=== PATIENT | male | born 1960 | race Caucasian/White ===

== ENCOUNTER 2016-03-30 10:41 | Inpatient (IN) | payer BC, OTHER ==
[~2016-03-30] VITALS: Ht 177.8 cm; Wt 189.0 kg
[2016-03-30] VITALS (11 sets, daily range): BP systolic 112–171; BP diastolic 50–96; PULSE 66–85; RESP 18–22; TEMP 98.1–98.5; O2SAT 85–98
[~2016-03-30 10:41] MED LIST: ASPI325T PO; GLIM2TAB PO; LEVO.075 PO; LISI-363 PO; METF-324 PO; TEMA15 PO
[2016-03-30] MEDS ORDERED: NOVO7030P2 SQ (10:56)
[2016-03-30] MEDS ORDERED: LEVO25TA4 PO (10:56)
[2016-03-30] MEDS ORDERED: METF1000 PO (10:56)
[2016-03-30] MEDS ORDERED: ASPI81CH37 CHEW (10:56)
[2016-03-30] MEDS ORDERED: LISI-515 PO (10:56)
[2016-03-30] MEDS ORDERED: SODIUM CHLORIDE 0.9% FLUSH 5 ML FLUSH IVF PRN (11:00)
--- NOTE | 2016-03-30 11:29 | PD ---
HPI Chief Complaint: Chest Pain Time Seen by Provider: 11:11 Travel History International Travel<30 days: No Contact w/Intl Traveler<30days: No Traveled to known affect area: No History of Present Illness HPI Patient is a 55-year-old male with history of hypertension, diabetes, hypothyroidism who presents to emergency room with complaints of chest pain. Patient reports that he woke up this morning and began to have left-sided chest pain which went down his left arm around 7:30 this morning. Patient reports that symptoms like a "pressure to my chest" with shortness of breath and diaphoresis. Patient reports that symptoms lasted for a few seconds and resolved on its own. Patient reports that he has never had chest pain in the past, reports that he has never seen a real estate firm manager. Denies any recent travels. Reports concern as his father had an MS in his early 50s, patient concerned that he may be having an MS. Patient also reports that he has had increased swelling and drainage from both his lower extremities. Patient reports that his legs always look red and big, reports that he attributes it to his diabetes. Denies fever/chills. PFSH Past Medical History Blood Disorders: No Depression: Yes (SITUATIONAL) Cancer: No Diabetes: Yes Patient Takes Glucophage: Yes Diminished Hearing: No Hypertension: Yes Immune Disorder: No Thyroid Disease: Yes Tetanus Vaccination: > 5 Years Influenza Vaccination: No Past Surgical History Other Surgery: Yes (INGROWN TOENAIL REMOVAL) Family History Family Myocardial Infarction: Yes (father with MS in his early 50's) Social History Alcohol Use: Yes (Occ.) Tobacco Use: No Substance Use: No Allergies-Medications (Allergen,Severity, Reaction): Coded Allergies: Penicillin (Verified Allergy, Severe, Allergy is a family HX; patient never had., 03/30/16) Reported Meds & Prescriptions Reported Meds & Active Scripts Active Reported Novolin 70-30 Inj (Insulin Human Isoph/Insulin Regular) 1,000 Unit/10 Ml Vial 50 Units SQ DAILY Aspirin Low Dose (Aspirin) 81 Mg Chew 81 Mg CHEW DAILY Lisinopril 20 Mg Tab 20 Mg PO DAILY Metformin (Metformin HCl) 1,000 Mg Tab 1,000 Mg PO BIDPC With meals Levothyroxine (Levothyroxine Sodium) 25 Mcg Tab 25 Mcg PO DAILY Review of Systems General / Constitutional: No: Fever Eyes: No: Visual changes HENT: No: Headaches Cardiovascular: Positive: Chest Pain or Discomfort, Diaphoresis Respiratory: Positive: Shortness of Breath Gastrointestinal: No: Nausea, Vomiting, Abdominal Pain Genitourinary: No: Dysuria Musculoskeletal: Positive: Edema, No: Pain Skin: No Rash Neurologic: No: Weakness Psychiatric: No: Depression Endocrine: No: Polydipsia Hematologic/Lymphatic: No: Easy Bruising Physical Exam Narrative GENERAL: No acute distress, nontoxic SKIN: Warm and dry. HEAD: Atraumatic. Normocephalic. EYES: Pupils equal and round. No scleral icterus. No injection or drainage. ENT: No nasal bleeding or discharge. Mucous membranes pink and moist. NECK: Trachea midline. No JVD. CARDIOVASCULAR: Regular rate and rhythm. No murmur appreciated. RESPIRATORY: No accessory muscle use. Clear to auscultation. Breath sounds equal bilaterally. GASTROINTESTINAL: Abdomen soft, non-tender, nondistended. Hepatic and splenic margins not palpable. MUSCULOSKELETAL: No obvious deformities. No clubbing. No cyanosis. +3 pedal edema with clear drainage to rle NEUROLOGICAL: Awake and alert. No obvious cranial nerve deficits. Motor grossly within normal limits. Normal speech. PSYCHIATRIC: Appropriate mood and affect; insight and judgment normal. Data Data Last Documented VS Vital Signs Date Time Temp Pulse Resp B/P Pulse Ox O2 Delivery O2 Flow Rate FiO2 03/30/16 13:35 78 22 119/62 95 Nasal Cannula 4 03/30/16 10:55 98.1 Orders B-Type Natriuretic Peptide (03/30/16 10:54) Ckmb (Isoenzyme) Profile (03/30/16 10:54) Complete Blood Count With Diff (03/30/16 10:54) Comprehensive Metabolic Panel (03/30/16 10:54) Prothrombin Time / Inr (Pt) (03/30/16 10:54) Act Partial Throm Time (Ptt) (03/30/16 10:54) Troponin I (03/30/16 10:54) Lipase (03/30/16 10:54) Chest, Single Ap (03/30/16 10:54) Ecg Monitoring (03/30/16 10:54) Iv Access Insert/Monitor (03/30/16 10:54) Oximetry (03/30/16 10:54) Sodium Chloride 0.9% Flush (Ns Flush) (03/30/16 11:00) Us Leg Venous Doppler Bilat (03/30/16 ) Ct Pulmonary Angiogram (03/30/16 12:13) Aspirin Chew (Aspirin Chew) (03/30/16 12:15) Electrocardiogram (03/30/16 ) Iohexol 350 Inj (Omnipaque 350 Inj) (03/30/16 13:11) Heparin Infusion ADONIS.Q1H (03/30/16 13:26) Heparin-D5w Inj (Heparin-D5w Inj) (03/30/16 13:30) Atorvastatin (Lipitor) (03/30/16 13:45) Act Partial Throm Time (Ptt) (03/30/16 19:45) Consult Cardiology (03/30/16 ) Admit Order (Ed Use Only) (03/30/16 14:00) Labs Laboratory Tests Test 03/30/16 11:30 White Blood Count 9.6 TH/MM3 Red Blood Count 5.58 MIL/MM3 Hemoglobin 14.7 GM/DL Hematocrit 47.6 % Mean Corpuscular Volume 85.2 FL Mean Corpuscular Hemoglobin 26.4 PG Mean Corpuscular Hemoglobin 31.0 % Concent Red Cell Distribution Width 15.5 % Platelet Count 250 TH/MM3 Mean Platelet Volume 7.6 FL Neutrophils (%) (Auto) 78.0 % Lymphocytes (%) (Auto) 12.4 % Monocytes (%) (Auto) 6.6 % Eosinophils (%) (Auto) 1.0 % Basophils (%) (Auto) 2.0 % Neutrophils # (Auto) 7.5 TH/MM3 Lymphocytes # (Auto) 1.2 TH/MM3 Monocytes # (Auto) 0.6 TH/MM3 Eosinophils # (Auto) 0.1 TH/MM3 Basophils # (Auto) 0.2 TH/MM3 CBC Comment DIFF FINAL Differential Comment Prothrombin Time 12.5 SEC Prothromb Time International 1.1 RATIO Ratio Activated Partial 24.7 SEC Thromboplast Time Sodium Level 139 MEQ/L Potassium Level 4.1 MEQ/L Chloride Level 92 MEQ/L Carbon Dioxide Level 41.3 MEQ/L Anion Gap 6 MEQ/L Blood Urea Nitrogen 10 MG/DL Creatinine 1.20 MG/DL Estimat Glomerular Filtration 63 ML/MIN Rate Random Glucose 104 MG/DL Calcium Level 8.2 MG/DL Total Bilirubin 0.7 MG/DL Aspartate Amino Transf 20 U/L (AST/SGOT) Alanine Aminotransferase 26 U/L (ALT/SGPT) Alkaline Phosphatase 53 U/L Total Creatine Kinase 70 U/L Troponin I 0.26 NG/ML B-Type Natriuretic Peptide 185 PG/ML Total Protein 7.1 GM/DL Albumin 3.2 GM/DL Lipase 221 U/L MDM Medical Decision Making Medical Screen Exam Complete: Yes Emergency Medical Condition: Yes Interpretation(s) EKG at 1047: NSR at 88bpm, qt/qtc: 360/409, no acute st or t wave changes Vital Signs Date Time Temp Pulse Resp B/P Pulse Ox O2 Delivery O2 Flow Rate FiO2 03/30/16 10:55 94 22 94 Nasal Cannula 4 repeat ekg at 1316 NSR at 77, qt/qtc: 390/419, no st or t wave changes, no change when compared to previous ekg Vital Signs Date Time Temp Pulse Resp B/P Pulse Ox O2 Delivery O2 Flow Rate FiO2 03/30/16 11:35 80 20 118/59 97 Nasal Cannula 2 03/30/16 11:35 97 Nasal Cannula 2 03/30/16 10:55 94 22 94 Nasal Cannula 4 Laboratory Tests Test 03/30/16 11:30 White Blood Count 9.6 TH/MM3 (4.0-11.0) Red Blood Count 5.58 MIL/MM3 (4.50-5.90) Hemoglobin 14.7 GM/DL (13.0-17.0) Hematocrit 47.6 % (39.0-51.0) Mean Corpuscular Volume 85.2 FL (80.0-100.0) Mean Corpuscular Hemoglobin 26.4 PG (27.0-34.0) Mean Corpuscular Hemoglobin 31.0 % Concent (32.0-36.0) Red Cell Distribution Width 15.5 % (11.6-17.2) Platelet Count 250 TH/MM3 (150-450) Mean Platelet Volume 7.6 FL (7.0-11.0) Neutrophils (%) (Auto) 78.0 % (16.0-70.0) Lymphocytes (%) (Auto) 12.4 % (9.0-44.0) Monocytes (%) (Auto) 6.6 % (0.0-8.0) Eosinophils (%) (Auto) 1.0 % (0.0-4.0) Basophils (%) (Auto) 2.0 % (0.0-2.0) Neutrophils # (Auto) 7.5 TH/MM3 (1.8-7.7) Lymphocytes # (Auto) 1.2 TH/MM3 (1.0-4.8) Monocytes # (Auto) 0.6 TH/MM3 (0-0.9) Eosinophils # (Auto) 0.1 TH/MM3 (0-0.4) Basophils # (Auto) 0.2 TH/MM3 (0-0.2) CBC Comment DIFF FINAL Differential Comment Prothrombin Time 12.5 SEC (9.8-11.6) Prothromb Time International 1.1 RATIO Ratio Activated Partial 24.7 SEC Thromboplast Time (24.3-30.1) Sodium Level 139 MEQ/L (136-145) Potassium Level 4.1 MEQ/L (3.5-5.1) Chloride Level 92 MEQ/L (98-107) Carbon Dioxide Level 41.3 MEQ/L (21.0-32.0) Anion Gap 6 MEQ/L (5-15) Blood Urea Nitrogen 10 MG/DL (7-18) Creatinine 1.20 MG/DL (0.60-1.30) Estimat Glomerular Filtration 63 ML/MIN (>89) Rate Random Glucose 104 MG/DL (74-106) Calcium Level 8.2 MG/DL (8.5-10.1) Total Bilirubin 0.7 MG/DL (0.2-1.0) Aspartate Amino Transf 20 U/L (15-37) (AST/SGOT) Alanine Aminotransferase 26 U/L (12-78) (ALT/SGPT) Alkaline Phosphatase 53 U/L (45-117) Total Creatine Kinase 70 U/L (39-308) Troponin I 0.26 NG/ML (0.02-0.05) B-Type Natriuretic Peptide 185 PG/ML (0-100) Total Protein 7.1 GM/DL (6.4-8.2) Albumin 3.2 GM/DL (3.4-5.0) Lipase 221 U/L (73-393) Last Impressions Chest X-Ray 03/30/16 1054 Signed Impressions: Service Date/Time: Wednesday, March 30, 2016 11:02 - CONCLUSION: Cardiomegaly with no acute cardiopulmonary disease. Michel Daigle MD Lower Extremity Ultrasound 03/30/16 0000 Signed Impressions: Service Date/Time: Wednesday, March 30, 2016 12:20 - CONCLUSION: Negative exam with no evidence of deep venous thrombosis. Michel Daigle MD Differential Diagnosis ACS, arrhythmia, PE, DVT, pneumothorax Narrative Course Patient is a 55-year-old male who presents to emergency room with complaints of chest pain which began this morning on 7:30 AM. Chest pain is located to the left side of his chest and radiates to his left arm and feels like a "pressure" to his chest with associated shortness of breath and diaphoresis. Symptoms only lasted for a few seconds and resolves on its own. Patient reports that he did take a baby ASA this morning. Will give another dose of aspirin Patient currently with no chest pain at this time. EKG with no acute changes. X-ray of chest as well as lab work and cardiac enzymes ordered for further evaluation of symptoms. I did ordered ultrasounds of patient's legs, he does have 3+ pedal edema and is hypoxic as his pulse ox is 94% on 4LNC and he does not use oxygen at home. PE/DVT is in the differential for workup. Plan to monitor patient on deputy controller Patient currently with no chest pain at this time. Patient does have a positive troponin of 0.26. Ultrasound of legs negative for DVT, CAT scan of chest negative for PE. Patient with an NSTEMI at this time. Case reviewed with Dr. Multani, request heparin gtt, and lipitor. Request that patient be transferred to [facility] for possible cath. Critical Care Narrative Aggregate critical care time was 30 minutes. Time to perform other separately billable procedures was not included in the critical care time. My time did not include minutes spent treating any other patients simultaneously or on activities that did not directly contribute to the patient's treatment. The services I provided to this patient were to treat and/or prevent clinically significant deterioration that could result in: , decompensation, deterioration I provided critical care services requiring my management, as noted below: Chart data review, documentation time, medication orders and management, vital sign assessments/reviewing monitor data, ordering and reviewing lab tests, ordering and interpreting/reviewing x-rays and diagnostic studies, care of the patient and discussion of the patient with the admitting physicians. Physician Communication Physician Communication case discussed with dr mlutani and dr flaquito huddleston accepts pt to service Diagnosis Primary Impression: NSTEMI (non-ST elevated myocardial infarction) Admitting Information Admitting Physician Requests: Admit Heather Ferreira DO Mar 30, 2016 11:29
--- NOTE | 2016-03-30 11:30 | RADHPO ---
EXAM DATE/TIME: 03/30/2016 11:02 [facility] COMPARISON: CHEST SINGLE AP, December 19, 2008, 10:34. INDICATIONS : Chest pain. MEDICAL HISTORY : Hypertension. Diabetic. SURGICAL HISTORY : None. ENCOUNTER: Initial ACUITY: 1 day PAIN SCORE: 7/10 LOCATION: chest FINDINGS: 2 AP erect portable views of the chest were obtained. Study is apical lordotic in technique. The hear t size remains enlarged with no definite infiltrates or effusions. There is overlying artifact from t he patient's body habitus. There are overlying electrocardiogram leads. CONCLUSION: Cardiomegaly with no acute cardiopulmonary disease. Michel Daigle MD on March 30, 2016 at 11:25 Board Certified Radiologist. This report was verified electronically.
[2016-03-30 11:40] LABS: AUTOMATED NEUTROPHIL # 7.5 TH/MM3 (1.8-7.7); BASOPHIL # 0.2 TH/MM3 (0-0.2); EOSINOPHIL # 0.1 TH/MM3 (0-0.4); HEMATOCRIT 47.6 % (39.0-51.0); LYMPH % 12.4 % (9.0-44.0); LYMPHOCYTE # 1.2 TH/MM3 (1.0-4.8); MEAN CELL VOLUME 85.2 FL (80.0-100.0); MEAN CORPUSCULAR HEMOGLOBIN 26.4 PG (27.0-34.0); MONO % 6.6 % (0.0-8.0); PLATELET COUNT 250 TH/MM3 (150-450); RED BLOOD COUNT 5.58 MIL/MM3 (4.50-5.90); RED CELL DISTRIBUTION WIDTH 15.5 % (11.6-17.2); WHITE BLOOD COUNT 9.6 TH/MM3 (4.0-11.0)
[2016-03-30 11:50] LABS: HEMO FLAGS DIFF FINAL
[2016-03-30 11:52] LABS: CHLORIDE 92 MEQ/L (98-107); POTASSIUM 4.1 MEQ/L (3.5-5.1); SODIUM (NA) 139 MEQ/L (136-145)
[2016-03-30 11:56] LABS: ANION GAP 6 MEQ/L (5-15); APTT (PATIENT) 24.7 SEC (24.3-30.1); BICARBONATE 41.3 MEQ/L (21.0-32.0); BLOOD UREA NITROGEN 10 MG/DL (7-18); INTERNATIONAL NORMALIZED RATIO 1.1 RATIO; PROTHROMBIN TIME - PATIENT 12.5 SEC (9.8-11.6)
[2016-03-30 11:58] LABS: ALT (GPT) 26 U/L (12-78)
[2016-03-30 11:59] LABS: AST (GOT) 20 U/L (15-37); GLOMERULAR FILTRATION RATE 63 ML/MIN (>89)
[2016-03-30 12:00] LABS: TOTAL BILIRUBIN ADULT 0.7 MG/DL (0.2-1.0)
[2016-03-30 12:01] LABS: ALKALINE PHOSPHATASE 53 U/L (45-117)
[2016-03-30 12:04] LABS: CREATINE KINASE 70 U/L (39-308)
[2016-03-30] MEDS ORDERED: ASPIRIN 81 MG CHEW TAB PO ONE (12:15)
--- NOTE | 2016-03-30 13:03 | RADHPO ---
EXAM DATE/TIME: 03/30/2016 12:20 [facility] COMPARISON: No previous studies available for comparison. INDICATIONS : Bilateral leg swelling. MEDICAL HISTORY : Hypertension. Thyroid disease. Diabetes. SURGICAL HISTORY : Toe nail removal. ENCOUNTER: Initial ACUITY: 1 day PAIN SCORE: 4/10 LOCATION: Bilateral legs. TECHNIQUE: Venous ultrasound of the left and right leg was performed from the inguinal ligament to the proximal calf. Real-time, color Doppler and spectral tracing, compression and augmentation techniques were us ed. FINDINGS: RIGHT LEG: There is normal compressibility of the deep venous system from the inguinal region to the proximal ca lf. No echogenic clot is seen in the lumen of the common femoral, femoral, popliteal, and posterior tibial veins. There is a normal response of the venous system to proximal and distal augmentation an d respiration. LEFT LEG: There is normal compressibility of the deep venous system from the inguinal region to the proximal ca lf. No echogenic clot is seen in the lumen of the common femoral, femoral, popliteal, and posterior tibial veins. There is a normal response of the venous system to proximal and distal augmentation an d respiration. CONCLUSION: Negative exam with no evidence of deep venous thrombosis. Michel Daigle MD on March 30, 2016 at 13:01 Board Certified Radiologist. This report was verified electronically.
[2016-03-30] MEDS ORDERED: IOHEXOL 350 MG/ML 10 ML VIAL (for RAD DIAG) IV ONE (13:11)
--- NOTE | 2016-03-30 13:24 | RADHPO ---
EXAM DATE/TIME: 03/30/2016 12:57 [facility] COMPARISON: No previous studies available for comparison. INDICATIONS : Left sided chest pain radiating to left arm this morning. IV CONTRAST: 75 cc Omnipaque 350 (iohexol) IV RADIATION DOSE: 21.97 CTDIvol (mGy) MEDICAL HISTORY : Hypertension. Diabetes. SURGICAL HISTORY : None. ENCOUNTER: Initial ACUITY: 1 day PAIN SCALE: 4/10 LOCATION: Left chest TECHNIQUE: Volumetric scanning of the chest was performed using a pulmonary embolism protocol MIP images were re constructed. Using automated exposure control and adjustment of the mA and/or kV according to patien t size, radiation dose was kept as low as reasonably achievable to obtain optimal diagnostic quality images. FINDINGS: The study is degraded by the patient's large body habitus. PULMONARY ARTERIES: No filling defects are seen in the pulmonary arteries through the segmental level. LUNGS: There is no consolidation or pneumothorax . No concerning pulmonary nodule is visualized. PLEURAE: There is no pleural thickening or pleural effusion. MEDIASTINUM: There is good visualization of the great vessels of the middle mediastinum. No evidence of mediastin al or hilar adenopathy/mass. Bilateral cardiac fat pads are present. MUSCULOSKELETAL: Within normal limits for patient age. MISCELLANEOUS: The visualized upper abdominal organs demonstrate no acute abnormality. There is fatty infiltration o f the liver. CONCLUSION: 1. The study is degraded by the patient's large body habitus. 2. There is no evidence of pulmonary embolism. Michel Daigle MD on March 30, 2016 at 13:20 Board Certified Radiologist. This report was verified electronically.
[2016-03-30] MEDS ORDERED: ATORVASTATIN 80 MG TAB PO ONE (13:30)
[2016-03-30] MEDS ORDERED: HEPARIN-D5W INJ 250 ML IV SCH (13:30)
[2016-03-30] MEDS ORDERED: ATORVASTATIN 40 MG TAB PO ONE (13:45)
[2016-03-30] MEDS ORDERED: MORPHINE SULFATE 4 MG/ML INJ IV PRN (14:15)
[2016-03-30] MEDS ORDERED: MAGNESIUM HYDROXIDE SUSP 30 ML CUP PO PRN (14:15)
[2016-03-30] MEDS ORDERED: ACETAMINOPHEN 325 MG TAB PO PRN (14:15)
[2016-03-30] MEDS ORDERED: PILL SPLITTER OTHER PRN (14:15)
[2016-03-30] MEDS ORDERED: DEXTROSE 50% IN WATER 50 ML VIAL(D50) IV PUSH PRN (14:15)
[2016-03-30] MEDS ORDERED: GLUCAGON 1 MG/ML VIAL OTHER PRN (14:15)
[2016-03-30] MEDS ORDERED: NALOXONE HCL 0.4 MG/ML AMP IV PRN (14:15)
[2016-03-30] MEDS ORDERED: ONDANSETRON HCL 4 MG/2 ML VIAL IVP PRN (14:15)
[2016-03-30 15:03] LABS: BLOOD GAS CARBOXYHEMOGLOBIN 2.7 % (0-4); BLOOD GAS HCO3 40 mmol/L (22-26); BLOOD GAS METHEMOGLOBIN 0.9 % (0-2); BLOOD GAS O2 HGB SATURATION 93 % (90-100); BLOOD GAS OXYGEN CONTENT 20.1 Vol % (12.0-20.0); BLOOD GAS PCO2 66 mmHG (38-42); BLOOD GAS PO2 86 mmHG (61-120); BLOOD GAS TOTAL HGB 15.4 G/DL (12.0-16.0); TEMP CORR TO 98.6
[2016-03-30 15:04] LABS: CRITICAL VALUE YES
[2016-03-30 15:05] LABS: DRAW SITE LT RADIAL; LITER FLOW 4 L/M; NUMBER OF ARTERIAL PUNCTURES 1; OXYGEN DEVICE NASAL CANNULA; STAT NO; ULNAR PULSE PRESENT
[2016-03-30] MEDS: INSULIN ASPART SUPPLEMENTAL SCALE SQ SCH ×2 (16:00→21:00)
[2016-03-30] MEDS: RESP: ALBUTEROL 2.5 MG/IPRATROPIUM 0.5 MG NEB (SCH) NEB (19:57)
[2016-03-30 20:12] LABS: APTT (PATIENT) 48.5 SEC (24.3-30.1)
[2016-03-30] MEDS: SODIUM CHLORIDE 0.9% FLUSH 5 ML FLUSH IVF SCH (21:00)
[2016-03-30] MEDS: METOPROLOL TARTRATE 25 MG TAB PO SCH (21:30)
[2016-03-30] MEDS: DOCUSATE SODIUM 100 MG CAP PO SCH (21:30)
[2016-03-31] VITALS (22 sets, daily range): BP systolic 116–163; BP diastolic 64–97; PULSE 62–97; RESP 16–20; TEMP 97.8–99; O2SAT 92–98
[2016-03-31 00:33] LABS: CREATINE KINASE 100 U/L (39-308)
[2016-03-31 03:08] LABS: APTT (PATIENT) 20.8 SEC (24.3-30.1)
[2016-03-31 03:14] LABS: ANION GAP 3 MEQ/L (5-15); BICARBONATE 37.6 MEQ/L (21.0-32.0); BLOOD UREA NITROGEN 10 MG/DL (7-18); CHLORIDE 93 MEQ/L (98-107); CREATINE KINASE 136 U/L (39-308); GLOMERULAR FILTRATION RATE 77 ML/MIN (>89); HDL CHOLESTEROL 42.6 MG/DL (40.0-60.0); LDL CHOLESTEROL 39 MG/DL (0-99); POTASSIUM 4.1 MEQ/L (3.5-5.1); SODIUM (NA) 134 MEQ/L (136-145)
[2016-03-31 03:27] LABS: CKMB 2.8 NG/ML (0.5-3.6)
[2016-03-31] MEDS ORDERED: LEVOTHYROXINE SODIUM 25 MCG TAB PO SCH (06:00)
[2016-03-31] MEDS: INSULIN ASPART SUPPLEMENTAL SCALE SQ SCH ×4 (06:11→20:47)
[2016-03-31] MEDS: RESP: ALBUTEROL 2.5 MG/IPRATROPIUM 0.5 MG NEB (SCH) NEB ×3 (07:14→20:20)
[2016-03-31] MEDS: METOPROLOL TARTRATE 25 MG TAB PO SCH ×2 (08:26→20:47)
[2016-03-31] MEDS: LISINOPRIL 20 MG TAB PO SCH (08:26)
[2016-03-31] MEDS: ASPIRIN EC 325 MG TABEC PO SCH (08:27)
[2016-03-31] MEDS: SODIUM CHLORIDE 0.9% FLUSH 5 ML FLUSH IVF SCH ×2 (08:27→20:47)
--- NOTE | 2016-03-31 08:48 | EKG ---
Date Performed: 03/30/2016 Time Performed: 16:09:24 PTAGE: 55 years EKG: Sinus arrhythmia. IV conduction defect Possible anterior infarct - age undetermined General ized low QRS voltages Abnormal ECG PREVIOUS TRACING : 03/30/2016 13.16 DOCTOR: Petey Tavares Interpretating Date/Time 03/31/2016 08:43:13
--- NOTE | 2016-03-31 08:54 | EKG ---
Date Performed: 03/30/2016 Time Performed: 13:16:58 PTAGE: 55 years EKG: Sinus rhythm . Poor R wave progression - probable normal variant Low QRS voltages in limb leads Borderline ECG PREVIOUS TRACING : 03/30/2016 10.47 DOCTOR: Petey Tavares Interpretating Date/Time 03/31/2016 08:50:23
[2016-03-31] MEDS ORDERED: INFLUENZA VIRUS VACCINE (QUADRIVALENT) 0.5 ML SYR IM ONE (09:00)
[2016-03-31] MEDS ORDERED: PNEUMOCOCCAL POLYVALENT INJ 25 MCG/0.5 ML SYR IM ONE (09:00)
[2016-03-31 10:39] LABS: APTT (PATIENT) 25.5 SEC (24.3-30.1)
[2016-03-31] MEDS: DOCUSATE SODIUM 100 MG CAP PO SCH ×2 (10:50→20:47)
--- NOTE | 2016-03-31 11:29 | EKG ---
Date Performed: 03/30/2016 Time Performed: 10:47:52 PTAGE: 55 years EKG: Sinus rhythm . Poor R wave progression - probable normal variant Low QRS voltages in limb leads Borderline ECG PREVIOUS TRACING : 12/19/2008 10.51 DOCTOR: Petey Tavares Interpretating Date/Time 03/31/2016 11:27:55
--- NOTE | 2016-03-31 11:57 | MB ---
cc: KAELA SEVERINO DATE OF 1960 DATE OF CONSULTATION March 31, 2016 REASON FOR CONSULTATION Chest pain and elevated troponins. HISTORY OF PRESENT ILLNESS 55-year-old male with past medical history significant for hypertension, diabetes, hypothyroidism, morbid obesity who presented to the hospital complaining of chest pain and shortness of breath since yesterday around 7 in the morning. The patient reported he was in his usual state of health until yesterday when all of a sudden he woke up with left-sided chest pressure that radiated to his left arm and was associated with a shortness of breath and diaphoresis. The chest pain went away by itself and lasted only a few seconds. EKG showed normal sinus rhythm with no significant ST changes. CTA done showed no evidence of PE. Cardiac markers went up to 2.59. Thus Cardiology has been consulted for further management and evaluation. The patient denies palpitations , syncope, chest trauma, bleeding issues, nausea, vomiting, constipation and diarrhea. REVIEW OF SYSTEMS As above dictated in the HPI. PAST MEDICAL HISTORY 1. Morbid obesity. 2. Hypertension. 3. Diabetes. 4. Hypothyroidism. 5. Depression. PAST SURGICAL HISTORY Ingrown toenail removal. FAMILY HISTORY Father had MA at age 50. SOCIAL HISTORY Social alcohol use. Denies tobacco or illicit drug use. ALLERGIES PENICILLIN. HOME MEDICATIONS 1. Insulin subcu. 2. Aspirin 81 mg p.o. daily. 3. Lisinopril 20 mg p.o. daily. 4. Metformin 1000 mg p.o. b.i.d. 5. Levothyroxine 25 mcg p.o. daily. PHYSICAL EXAMINATION VITAL SIGNS: Temperature 98.2, respiratory rate 18, pulse 72, blood pressure 120/71, O2 sat 96% on 2 liters NC. GENERAL: He is awake, alert, oriented x 3, in no acute distress. NECK: Obese. No JVD. HEART: Regular rate and rhythm. No murmurs, rubs, or gallops appreciated. LUNGS: Clear to auscultation bilaterally. ABDOMEN: Obese. Positive bowel sounds, nontender, nondistended. EXTREMITIES: There is +1 edema of bilateral lower extremities and there is some redness, no signs of infection. DATA CBC - Hemoglobin 14, hematocrit 47, platelet count 250. INR 1.1. Chemistries - Sodium 134, potassium 4.1, BUN 10, creatinine 1.01. Troponin 0.26, 0.54, 0.57 and 0.59. Triglycerides 108, cholesterol 103, LDL 39, HDL 42. TSH 9.2. IMAGING STUDIES CTA negative for PE. CHEST X-RAY No acute cardiopulmonary process. Lower extremity ultrasound - No DVT. EKG Sinus rhythm. ASSESSMENT AND PLAN 55-year-old male with cardiac risk factors that include obesity, diabetes, hypertension, who presented to the hospital complaining of acute episode of angina, troponins trending up with no EKG changes. Currently he remains hemodynamically stable and chest pain-free. At this point, given his risk factors and elevated troponins, I think it would reasonable to do a left heart catheterization to further risk stratify his CAD. The risks and benefits of left heart cath/intervention include but not limited to bleeding, kidney failure , neurovascular trauma, MA, emergent CABG, stroke and have been explained to the patient. The patient understands and he is willing to proceed. Recommendations: 1. Left heart cath/PCI this afternoon. 2. Continue aggressive medical management for ACS with aspirin, statins, beta blockers and anticoagulation. Thank you for the opportunity to take part in the care of this patient. Further therapy to be determined. MD VENKATA Antonio/SSB /11:19 AM /11:34 AM [facility]
[2016-03-31 12:53] LABS: HEMOGLOBIN A1a 1.3 %; HEMOGLOBIN A1b 1.9 %; HEMOGLOBIN LA1C 1.6 %; HEMOGLOBIN P3 3.2 %
--- NOTE | 2016-03-31 14:49 | HHI.HP ---
[facility] Service [place] [facility] Primary Care Physician Wesley Gamez M.D. Admission Diagnosis NSTEMI Diagnoses: Chief Complaint: Chest pain Travel History International Travel<30 Days: No Contact w/Intl Traveler <30 Da: No Traveled to Known Affected Are: No History of Present Illness Late entry: This is a 55-year-old male with history of hypertension, diabetes mellitus and morbid obesity presenting with chest pain. Chest pain started around 7 AM this morning upon waking up, left-sided, described as pressure-like, radiating to left arm associated with shortness of breath and diaphoresis. Chest pain lasted for about a few seconds. Patient was then brought to the emergency department. CTA of the chest was negative for PE. Troponin was. Patient denies any nausea, vomiting, urinary status, fever, chills or cough. Presently , patient is chest pain-free. Review of Systems ROS Limitations: Other (All other pertinent systems were reviewed and are negative.) Past Family Social History Past Medical History Morbid obesity Hypothyroidism Hypertension Diabetes mellitus Depression Past Surgical History Ingrown toenail removal Reported Medications Novolin 70-30 Inj (Insulin Human Isoph/Insulin Regular) 1,000 Unit/10 Ml Vial 50 Units SQ DAILY Aspirin Low Dose (Aspirin) 81 Mg Chew 81 Mg CHEW DAILY Lisinopril 20 Mg Tab 20 Mg PO DAILY Metformin (Metformin HCl) 1,000 Mg Tab 1,000 Mg PO BIDPC With meals Levothyroxine (Levothyroxine Sodium) 25 Mcg Tab 25 Mcg PO DAILY Allergies: Coded Allergies: Penicillin (Verified Allergy, Severe, Allergy is a family HX; patient never had., 03/30/16) Family History Father of [place] at age 50 Social History Patient denies smoking, significant alcohol intake or use of any illicit drugs. Drinks socially Physical Exam Vital Signs Vital Signs Date Time Temp Pulse Resp B/P Pulse Ox O2 Delivery O2 Flow Rate FiO2 03/31/16 14:03 69 03/31/16 13:36 97 03/31/16 12:25 68 03/31/16 11:52 69 03/31/16 11:38 98.4 69 20 145/68 93 03/31/16 10:00 72 03/31/16 09:00 64 03/31/16 08:06 72 03/31/16 08:06 98.2 66 18 120/71 95 03/31/16 07:31 72 03/31/16 07:14 96 Nasal Cannula 2.00 03/31/16 06:00 72 03/31/16 05:00 86 03/31/16 04:00 98.1 74 16 116/64 92 03/31/16 04:00 74 03/31/16 03:00 72 03/31/16 02:00 74 03/31/16 01:00 80 03/31/16 00:00 98.4 72 16 138/82 93 03/31/16 00:00 74 03/30/16 23:00 66 03/30/16 22:00 68 03/30/16 21:00 78 03/30/16 21:00 98.5 78 20 159/96 94 03/30/16 19:58 96 Nasal Cannula 4.00 03/30/16 19:52 74 18 115/50 98 Nasal Cannula 2 03/30/16 15:35 66 20 112/63 96 Nasal Cannula 4 Physical Exam GENERAL: Not in acute distress, well-nourished. HEAD: Atraumatic. Normocephalic. No temporal or scalp tenderness. EYES: PERRL, full EOMs, no jaundice, nonicteric, pink conjunctivae without injection, moist mucosa ENT: Nose without bleeding, purulent drainage. Airway patent. NECK: Trachea midline, no mass, no obvious thyromegaly. CARDIOVASCULAR: Regular rate and rhythm without murmurs, gallops, or rubs. RESPIRATORY: Decreased breath sounds bilaterally because of body habitus. GASTROINTESTINAL: Abdomen soft, normal bowel sounds, non-tender, nondistended.DAMARIS and exam deferred. MUSCULOSKELETAL: Extremities without clubbing, cyanosis, or edema. No calf tenderness. Distal pulses intact, 2+ bilaterally. INTEGUMENTARY: Warm and dry, no rash of generalized distribution. NEUROLOGICAL: Awake, alert, oriented 3. No obvious cranial nerve deficits. Moves all 4 extremities, muscle strength testing 5 over 5. Motor and sensory grossly within normal limits. .Supple neck, no meningeal signs. Grossly negative cerebellar examination. No focal neurologic deficits. PSYCHIATRIC: Normal mood, appropriate affect. Laboratory Laboratory Tests Test 03/30/16 03/30/16 03/30/16 03/30/16 14:55 15:55 19:45 22:35 Blood Gas Puncture Site LT RADIAL Blood Gas Patient Temperature 98.6 Blood Gas HCO3 40 Blood Gas Base Excess 14.0 Blood Gas Oxygen Saturation 93 Arterial Blood pH 7.40 Arterial Blood Partial 66 Pressure CO2 Arterial Blood Partial 86 Pressure O2 Arterial Blood Oxygen Content 20.1 Arterial Blood 2.7 Carboxyhemoglobin Arterial Blood Methemoglobin 0.9 Blood Gas Hemoglobin 15.4 Oxygen Delivery Device NASAL CANNULA Blood Gas Liter Flow 4 Total Creatine Kinase 69 100 Troponin I 0.54 0.57 Activated Partial 48.5 Thromboplast Time Hemoglobin A1c 7.6 Thyroid Stimulating Hormone 9.210 3rd Gen Test 03/31/16 03/31/16 02:19 10:06 Activated Partial 20.8 25.5 Thromboplast Time Sodium Level 134 Potassium Level 4.1 Chloride Level 93 Carbon Dioxide Level 37.6 Anion Gap 3 Blood Urea Nitrogen 10 Creatinine 1.01 Estimat Glomerular Filtration 77 Rate Random Glucose 121 Calcium Level 8.6 Total Creatine Kinase 136 Creatine Kinase MB 2.8 Troponin I 0.59 Triglycerides Level 108 Cholesterol Level 103 LDL Cholesterol 39 HDL Cholesterol 42.6 Cholesterol/HDL Ratio 2.41 Result Diagram: 03/30/16 1130 03/31/16 [address] Angiography 03/30/16 1213 Signed Impressions: Service Date/Time: Wednesday, March 30, 2016 12:57 - CONCLUSION: 1. The study is degraded by the patient's large body habitus. 2. There is no evidence of pulmonary embolism. Michel Daigle MD Chest X-Ray 03/30/16 1054 Signed Impressions: Service Date/Time: Wednesday, March 30, 2016 11:02 - CONCLUSION: Cardiomegaly with no acute cardiopulmonary disease. Michel Daigle MD Lower Extremity Ultrasound 03/30/16 0000 Signed Impressions: Service Date/Time: Wednesday, March 30, 2016 12:20 - CONCLUSION: Negative exam with no evidence of deep venous thrombosis. Michel Daigle MD Assessment and Plan Assessment and Plan This is a 55-year-old male with history of hypertension, diabetes and morbidly obese person with chest pain Non-ST elevated myocardial infarction- troponin 0.26, EKG showed sinus rhythm, start heparin, consult cardiology, will likely need a catheterization. Start statin, aspirin and metoprolol. Morphine for pain. Diabetes mellitus-hemoglobin A1c 7.6, needs better control of diabetes, continue sliding scale for now,, start Levemir. Hold metformin Hypothyroidism-TSH 9.2, check free T3 and free T4. Increased levothyroxine, would likely need increase anyway based on his weight. Hypertension-restart lisinopril, Vasotec as needed DVT reflexes: Heparin drip Physician Certification 2 Midnight Certification Type: Admission for Inpatient Services Order for Inpatient Services The services are ordered in accordance with Medicare regulations or non- Medicare payer requirements, as applicable. In the case of services not specified as inpatient-only, they are appropriately provided as inpatient services in accordance with the 2-midnight benchmark. Estimated LOS (days): 2 days is the estimated time the patient will need to remain in the hospital, assuming treatment plan goals are met and no additional complications. Post-Hospital Plan: Home Ian Wilcox MD Mar 31, 2016 14:49
[2016-03-31] MEDS ORDERED: HEPARIN-NS/PF INJ 500 ML ONE (15:58)
[2016-03-31] MEDS ORDERED: MIDAZOLAM HCL 2 MG/2 ML VIAL ONE (15:59)
[2016-03-31] MEDS ORDERED: VERAPAMIL HCL 5 MG/2 ML VIAL ONE (16:06)
[2016-03-31] MEDS ORDERED: HEPARIN SODIUM - IV 10,000 UNITS/10 ML VIAL ONE (16:06)
[2016-03-31] MEDS ORDERED: IOHEXOL 350 MG/ML 50 ML BTL (for Cath Lab) OTHER ONE (16:34)
--- NOTE | 2016-03-31 17:50 | MA ---
cc: KAELA SEVERINO DATE 03/31/16 1960 PROCEDURE PERFORMED 1. Left heart catheterization 2. Selective right and coronary angiography 3. Left ventricular recordings APPROACH Right radial DESCRIPTION OF PROCEDURE Consent signed. The patient is brought into the cardiac cath in a fasting state. Using 1% Lidocaine for local anesthesia a micropuncture kit a 6-Czech sheath was inserted into the right radial artery. Then selective right and left coronary angiography was performed with a JR-4 and JL-3.5 diagnostic catheter. Angiography was taken in multiple views. The JR was introduced into the left ventricle followed by LV recordings and pullback. The patient tolerated the procedure well without complications. Estimated blood loss less than 30 mL. Total contrast used 75 mL. The right radial access site was closed with a TR band. ANGIOGRAPHIC RESULTS LVEDP 20. ANGIOGRAPHY 1. Left main patent with nonobstructive coronary artery disease. 2. LAD is a transapical vessel. It has minimal irregularities. No significant blockages. It has VIET III flow. Diagonal was also patent with nonobstructive CAD. 3. Left circumflex is a widely open with nonobstructive CAD and VIET III flow. OM1 and 2 are patent. 4. Right coronary artery dominant vessel giving off the PDA. It is patent with nonobstructive coronary artery disease. CONCLUSION 1. Normal coronary arteries 2. Elevated LVEDP. RECOMMENDATIONS Continue aggressive medical management for cardiac risk factors. Lifestyle modification and post cath care. MD VENKATA Antonio/ /5:22 PM /5:39 PM CHLOE
[2016-03-31] MEDS ORDERED: ENALAPRILAT 1.25 MG/ML VIAL IV PUSH PRN (18:00)
[2016-03-31 19:21] LABS: FREE T4 1.29 NG/DL (0.76-1.46)
[2016-03-31 19:27] LABS: APTT (PATIENT) 24.8 SEC (24.3-30.1)
[2016-03-31] MEDS: ATORVASTATIN 40 MG TAB PO SCH (20:47)
[2016-03-31] MEDS: INSULIN DETEMIR 100 UNITS/ML VIAL SQ SCH (20:47)
[2016-04-01] VITALS (23 sets, daily range): BP systolic 126–162; BP diastolic 65–93; PULSE 60–93; RESP 18–22; TEMP 97.5–98.8; O2SAT 92–95
[2016-04-01] MEDS: LEVOTHYROXINE SODIUM 125 MCG TAB PO SCH (05:28)
[2016-04-01] MEDS: INSULIN ASPART SUPPLEMENTAL SCALE SQ SCH ×4 (05:30→21:00)
[2016-04-01] MEDS: RESP: ALBUTEROL 2.5 MG/IPRATROPIUM 0.5 MG NEB (SCH) NEB ×3 (07:10→21:55)
[2016-04-01 07:57] LABS: AUTOMATED NEUTROPHIL # 6.8 TH/MM3 (1.8-7.7); BASOPHIL % 0.2 % (0.0-2.0); EOSINOPHIL # 0.2 TH/MM3 (0-0.4); EOSINOPHIL % 1.9 % (0.0-4.0); HEMATOCRIT 47.7 % (39.0-51.0); HEMO FLAGS DIFF FINAL; LYMPH % 9.1 % (9.0-44.0); LYMPHOCYTE # 0.7 TH/MM3 (1.0-4.8); MEAN CORPUSCULAR HEMOGLOBIN 26.8 PG (27.0-34.0); MEAN CORPUSCULAR HGB CONC 30.8 % (32.0-36.0); NEUT % 81.8 % (16.0-70.0); PLATELET COUNT 202 TH/MM3 (150-450); RED BLOOD COUNT 5.48 MIL/MM3 (4.50-5.90); RED CELL DISTRIBUTION WIDTH 16.5 % (11.6-17.2); WHITE BLOOD COUNT 8.3 TH/MM3 (4.0-11.0)
[2016-04-01] MEDS: DOCUSATE SODIUM 100 MG CAP PO SCH ×2 (08:22→21:05)
[2016-04-01] MEDS: LISINOPRIL 20 MG TAB PO SCH (08:22)
[2016-04-01] MEDS: ASPIRIN EC 325 MG TABEC PO SCH (08:22)
[2016-04-01] MEDS: METOPROLOL TARTRATE 25 MG TAB PO SCH ×2 (08:23→21:06)
[2016-04-01] MEDS: SODIUM CHLORIDE 0.9% FLUSH 5 ML FLUSH IVF SCH ×2 (08:23→21:04)
--- NOTE | 2016-04-01 10:52 | HHI.PR ---
Subjective Remarks Follow-up chest pain. Denies further chest pain. States he cannot go home because he is short of breath even with slight exertion. Also states fluids seeping out of his legs. Objective Vitals Vital Signs Date Time Temp Pulse Resp B/P Pulse Ox O2 Delivery O2 Flow Rate FiO2 04/01/16 10:08 64 04/01/16 09:29 64 04/01/16 08:25 90 04/01/16 08:25 97.9 77 20 162/65 95 04/01/16 07:10 92 Nasal Cannula 4.00 04/01/16 04:38 98.8 86 20 152/93 92 04/01/16 03:35 86 04/01/16 01:00 80 04/01/16 00:00 98.8 80 20 144/65 92 04/01/16 00:00 85 03/31/16 20:00 99.0 85 20 163/97 92 03/31/16 20:00 85 03/31/16 18:14 63 03/31/16 17:23 92 03/31/16 17:20 97.8 66 18 121/67 98 03/31/16 15:35 62 03/31/16 14:03 69 03/31/16 13:36 97 03/31/16 12:25 68 03/31/16 11:52 69 03/31/16 11:38 98.4 69 20 145/68 93 I/O 03/31/16 03/31/16 03/31/16 04/01/16 04/01/16 04/01/16 07:00 15:00 23:00 07:00 15:00 23:00 Intake Total 503 ml 480 ml 600 ml Output Total 500 ml 600 ml 750 ml Balance 3 ml -120 ml -150 ml Intake Oral 360 ml 480 ml 600 ml IV Total 143 ml 0 ml Output Urine Total 500 ml 600 ml 750 ml # Bowel Movements 0 0 Result Diagram: 04/01/16 0541 03/31/16 [address] Angiography 03/30/16 1213 Signed Impressions: Service Date/Time: Wednesday, March 30, 2016 12:57 - CONCLUSION: 1. The study is degraded by the patient's large body habitus. 2. There is no evidence of pulmonary embolism. Michel Daigle MD Chest X-Ray 03/30/16 1054 Signed Impressions: Service Date/Time: Wednesday, March 30, 2016 11:02 - CONCLUSION: Cardiomegaly with no acute cardiopulmonary disease. Michel Daigle MD Lower Extremity Ultrasound 03/30/16 0000 Signed Impressions: Service Date/Time: Wednesday, March 30, 2016 12:20 - CONCLUSION: Negative exam with no evidence of deep venous thrombosis. Michel Daigle MD Objective Remarks GENERAL: Well-developed obese in no distress SKIN: Warm and dry. HEAD: Atraumatic. Normocephalic. EYES: Pupils equal and round. No scleral icterus. No injection or drainage. ENT: No nasal bleeding or discharge. Mucous membranes pink and moist. NECK: Trachea midline. No JVD. CARDIOVASCULAR: Regular rate and rhythm. RESPIRATORY: No accessory muscle use. Clear to auscultation. Decreased Breath sounds equal bilaterally. GASTROINTESTINAL: Abdomen soft, non-tender, nondistended. MUSCULOSKELETAL: Extremities without clubbing, cyanosis with bilateral lower extremity pitting edema, he has anasarca. No obvious deformities. NEUROLOGICAL: Awake and alert. No obvious cranial nerve deficits. Motor grossly within normal limits. Five out of 5 muscle strength in the arms and legs. Normal speech. PSYCHIATRIC: Appropriate mood and affect; insight and judgment normal. Procedures Cardiac catheterization A/P Assessment and Plan This is a 55-year-old male with history of hypertension, diabetes and morbidly obese person with chest pain Chest pain with troponin elevation. Negative cardiac catheterization. CTA negative for PE. Continue aspirin, Lopressor and lisinopril. Diabetes mellitus-hemoglobin A1c 7.6, needs better control of diabetes, continue sliding scale and Levemir. Hold metformin repeat BMP and magnesium in the morning Hypothyroidism-TSH 9.2. Increased levothyroxine based on his weight. Hypertension-restart lisinopril, Vasotec as needed Fluid overload etiology to be determined. Renal function within normal limits. Obtain echocardiogram. Fluid restriction. Start IV diuresis with Lasix and monitor renal function and electrolytes. DVT prophylaxis with heparin Discharge Planning Not ready for discharge Raúl Wood MD Apr 01, 2016 10:52 Sodium Level 134 Potassium Level 4.1 Chloride Level 93 Carbon Dioxide Level 37.6 Anion Gap 3 Blood Urea Nitrogen 10 Creatinine 1.01 Estimat Glomerular Filtration 77 Rate Random Glucose 121 Calcium Level 8.6 Total Creatine Kinase 136 Creatine Kinase MB 2.8 Troponin I 0.59 Triglycerides Level 108 Cholesterol Level 103 LDL Cholesterol 39 HDL Cholesterol 42.6 Cholesterol/HDL Ratio 2.41 Result Diagram: 03/30/16 1130 03/31/16 [address] Angiography 03/30/16 1213 Signed Impressions: Service Date/Time: Wednesday, March 30, 2016 12:57 - CONCLUSION: 1. The study is degraded by the patient's large body habitus. 2. There is no evidence of pulmonary embolism. Michel Daigle MD Chest X-Ray 03/30/16 1054 Signed Impressions: Service Date/Time: Wednesday, March 30, 2016 11:02 - CONCLUSION: Cardiomegaly with no acute cardiopulmonary disease. Michel Daigle MD Lower Extremity Ultrasound 03/30/16 0000 Signed Impressions: Service Date/Time: Wednesday, March 30, 2016 12:20 - CONCLUSION: Negative exam with no evidence of deep venous thrombosis. Michel Daigle MD Septic Shock Reassessment Septic Shock Reassessment Assessment and Plan Assessment and Plan Assessment and Plan This is a 55-year-old male with history of hypertension, diabetes and morbidly obese person with chest pain Non-ST elevated myocardial infarction- troponin 0.26, EKG showed sinus rhythm, start heparin, consult cardiology, will likely need a catheterization. Start statin, aspirin and metoprolol. Morphine for pain. Diabetes mellitus-hemoglobin A1c 7.6, needs better control of diabetes, continue sliding scale for now,, start Levemir. Hold metformin Hypothyroidism-TSH 9.2, check free T3 and free T4. Increased levothyroxine, would likely need increase anyway based on his weight. Hypertension-restart lisinopril, Vasotec as needed DVT reflexes: Heparin drip Raúl Wood MD Apr 01, 2016 10:52
[2016-04-01] MEDS ORDERED: CALCIUM CARBONATE 500 MG CHEWABLE TAB CHEW PRN (11:00)
[2016-04-01] MEDS ORDERED: FUROSEMIDE 20 MG/2 ML VIAL IV PUSH ONE (11:00)
[2016-04-01] MEDS ORDERED: ALUMINUM/MAGNESIUM/SIMETH 30 ML CUP PO PRN (11:00)
[2016-04-01] MEDS: POTASSIUM CHLORIDE 10 MEQ CAP PO SCH ×2 (11:43→21:05)
[2016-04-01] MEDS: HEPARIN SODIUM - SQ 10,000 UNITS/ML VIAL SQ SCH ×2 (12:28→21:08)
[2016-04-01 13:35] LABS: BICARBONATE 37.7 MEQ/L (21.0-32.0); POTASSIUM 4.3 MEQ/L (3.5-5.1)
[2016-04-01] MEDS: FUROSEMIDE 20 MG/2 ML VIAL IV PUSH SCH (17:01)
--- NOTE | 2016-04-01 19:03 | EC ---
Study Study Date:04/01/2016 STUDY CONCLUSIONS SUMMARY - Procedure narrative: Image quality was poor. The study was technically limited due to body habitus. - Left ventricle: Not visualized. Unable to determine ejection fraction. If LV function is below 40, please consider prescribing an ACEI or ARB or document rationale for non-use. PROCEDURE DATA Procedure: Transthoracic echocardiography. Image quality was poor. The study was technically limited due to body habitus. Scanning was performed from the parasternal, apical, and subcostal acoustic windows. Study completion: The patient tolerated the procedure well. Transthoracic echocardiography. M-mode, limited 2D, limited spectral Doppler, and color Doppler. CARDIAC ANATOMY LEFT VENTRICLE: Not visualized. Images were inadequate for LV wall motion assessment. Prepared and signed by Clifton Valera [id number]
[2016-04-01] MEDS: FAMOTIDINE 20 MG TAB PO SCH (21:06)
[2016-04-01] MEDS: ATORVASTATIN 40 MG TAB PO SCH (21:06)
[2016-04-01] MEDS: INSULIN DETEMIR 100 UNITS/ML VIAL SQ SCH (21:07)
[2016-04-02] VITALS (30 sets, daily range): BP systolic 131–157; BP diastolic 60–85; PULSE 62–98; RESP 18–22; TEMP 98.2–98.8; O2SAT 92–99
[2016-04-02] MEDS: LEVOTHYROXINE SODIUM 125 MCG TAB PO SCH (05:42)
[2016-04-02] MEDS: INSULIN ASPART SUPPLEMENTAL SCALE SQ SCH ×4 (05:44→21:00)
[2016-04-02] MEDS: RESP: ALBUTEROL 2.5 MG/IPRATROPIUM 0.5 MG NEB (SCH) NEB ×3 (07:59→21:10)
[2016-04-02 08:24] LABS: BICARBONATE 40.9 MEQ/L (21.0-32.0); MAGNESIUM 2.2 MG/DL (1.5-2.5); POTASSIUM 4.8 MEQ/L (3.5-5.1)
[2016-04-02] MEDS: SODIUM CHLORIDE 0.9% FLUSH 5 ML FLUSH IVF SCH ×2 (08:45→19:52)
[2016-04-02] MEDS: LISINOPRIL 20 MG TAB PO SCH (08:46)
[2016-04-02] MEDS: FUROSEMIDE 20 MG/2 ML VIAL IV PUSH SCH (08:46)
[2016-04-02] MEDS: METOPROLOL TARTRATE 25 MG TAB PO SCH ×2 (08:46→19:52)
[2016-04-02] MEDS: HEPARIN SODIUM - SQ 10,000 UNITS/ML VIAL SQ SCH ×2 (08:46→19:52)
[2016-04-02] MEDS: DOCUSATE SODIUM 100 MG CAP PO SCH ×2 (08:47→19:51)
[2016-04-02] MEDS: POTASSIUM CHLORIDE 10 MEQ CAP PO SCH ×2 (08:47→19:51)
[2016-04-02] MEDS: FAMOTIDINE 20 MG TAB PO SCH ×2 (08:47→19:51)
[2016-04-02] MEDS: ASPIRIN EC 325 MG TABEC PO SCH (08:47)
--- NOTE | 2016-04-02 10:30 | HHI.PR ---
Subjective Remarks Follow-up dyspnea. Improving shortness of breath last 2 kg from diuresis yesterday. Discussed with RN Objective Vitals Vital Signs Date Time Temp Pulse Resp B/P Pulse Ox O2 Delivery O2 Flow Rate FiO2 04/02/16 10:02 73 04/02/16 09:17 76 04/02/16 08:41 98.2 76 20 151/60 93 04/02/16 08:01 96 Nasal Cannula 4.00 04/02/16 08:00 78 04/02/16 07:00 98 04/02/16 06:00 78 04/02/16 05:00 78 04/02/16 04:00 80 04/02/16 03:00 98.4 82 20 156/76 93 04/02/16 03:00 82 04/02/16 02:53 71 04/02/16 02:00 80 04/02/16 01:00 90 04/02/16 00:00 76 04/01/16 23:00 97.5 78 22 129/85 94 04/01/16 22:33 72 04/01/16 22:00 68 04/01/16 21:56 94 Nasal Cannula 4.00 04/01/16 21:00 72 04/01/16 20:00 72 04/01/16 19:00 77 04/01/16 19:00 98.2 72 18 129/69 93 04/01/16 18:23 74 04/01/16 17:03 93 04/01/16 16:02 76 04/01/16 15:30 76 04/01/16 15:30 98.0 86 18 146/81 94 04/01/16 14:32 69 04/01/16 13:02 67 04/01/16 12:00 69 04/01/16 11:28 60 04/01/16 11:28 98.2 62 18 126/74 95 I/O 04/01/16 04/01/16 04/01/16 04/02/16 04/02/16 04/02/16 07:00 15:00 23:00 07:00 15:00 23:00 Intake Total 600 ml 720 ml 520 ml Output Total 750 ml 1625 ml 2250 ml Balance -150 ml -905 ml -1730 ml Intake Oral 600 ml 720 ml 520 ml IV Total 0 ml Output Urine Total 750 ml 1625 ml 2250 ml # Bowel Movements 0 0 1 Result Diagram: 04/01/16 0541 04/02/16 [address] Angiography 03/30/16 1213 Signed Impressions: Service Date/Time: Wednesday, March 30, 2016 12:57 - CONCLUSION: 1. The study is degraded by the patient's large body habitus. 2. There is no evidence of pulmonary embolism. Michel Daigle MD Chest X-Ray 03/30/16 1054 Signed Impressions: Service Date/Time: Wednesday, March 30, 2016 11:02 - CONCLUSION: Cardiomegaly with no acute cardiopulmonary disease. Michel Daigle MD Lower Extremity Ultrasound 03/30/16 0000 Signed Impressions: Service Date/Time: Wednesday, March 30, 2016 12:20 - CONCLUSION: Negative exam with no evidence of deep venous thrombosis. Michel Daigle MD Objective Remarks GENERAL: Well-developed obese in no distress SKIN: Warm and dry. HEAD: Atraumatic. Normocephalic. EYES: Pupils equal and round. No scleral icterus. No injection or drainage. ENT: No nasal bleeding or discharge. Mucous membranes pink and moist. NECK: Trachea midline. No JVD. CARDIOVASCULAR: Regular rate and rhythm. RESPIRATORY: No accessory muscle use. Clear to auscultation. Decreased Breath sounds equal bilaterally. GASTROINTESTINAL: Abdomen soft, non-tender, nondistended. MUSCULOSKELETAL: Extremities without clubbing, cyanosis with bilateral lower extremity pitting edema, he has anasarca. No obvious deformities. NEUROLOGICAL: Awake and alert. No obvious cranial nerve deficits. Motor grossly within normal limits. Five out of 5 muscle strength in the arms and legs. Normal speech. Nonfocal PSYCHIATRIC: Appropriate mood and affect; insight and judgment normal. Procedures Cardiac catheterization A/P Assessment and Plan This is a 55-year-old male with history of hypertension, diabetes and morbidly obese person with chest pain Chest pain with troponin elevation. Negative cardiac catheterization. CTA negative for PE. Continue aspirin, Lopressor and lisinopril. Diabetes mellitus-hemoglobin A1c 7.6, needs better control of diabetes, continue sliding scale and Levemir. Stable renal function restart metformin Hypothyroidism-TSH 9.2. Increased levothyroxine based on his weight. Hypertension-restart lisinopril, Vasotec as needed Fluid overload etiology to be determined. Renal function within normal limits. Repeat echocardiogram for study was suboptimal. Fluid restriction. Continue IV diuresis with Lasix and monitor renal function and electrolytes. DVT prophylaxis with heparin Discharge Planning Not ready for discharge Raúl Wood MD Apr 02, 2016 10:30
--- NOTE | 2016-04-02 16:25 | MB ---
cc: FELISA ROBERTO M.D. DATE OF CONSULTATION: 04/02/2016. REASON FOR CONSULTATION: Sleep apnea. HISTORY OF PRESENT ILLNESS: Mr. Mejía is a 55-year-old male who was admitted with chest pain and negative cardiac catheterization. The patient is morbidly obese with loud snoring while sleeping and periods of tiredness during the daytime. The patient as well has exertional dyspnea, the etiology of which is not clear. Denies history of fever or chills, cough, expectoration or hemoptysis. PAST MEDICAL HISTORY: His past medical history positive for: 1. Diabetes mellitus. 2. Hypertension. 3. Hypothyroidism. FAMILY HISTORY: Positive for coronary artery disease. Otherwise unremarkable. SOCIAL HISTORY: Does not smoke and drinks alcohol socially, no drug abuse. ALLERGIES: PENICILLIN. MEDICATIONS: Medications at home include: 1. Insulin. 2. Lisinopril. 3. Metformin. 4. Levothyroxine. REVIEW OF SYSTEMS: A twelve-point review of systems is as per the history of present illness and past history, otherwise negative. PHYSICAL EXAMINATION: WEIGHT: On exam, weight is 205 pounds. VITAL SIGNS: Temperature 98, pulse 60, respirations 20, blood pressure 150/70, oxygen saturation 95% on room air. HEAD, EYES, EARS, NOSE, THROAT: Unremarkable. Eyes without icterus. NECK: Without adenopathy, thyroid enlargement, central trachea. CHEST: No dullness to percussion. Clear to auscultation. CARDIAC: PMI not appreciated. S1-S2 audible. No murmur, no rub. ABDOMEN: Obese. Lax. EXTREMITIES: 2+ edema. IMAGING STUDIES: CT angiogram 03/30/2016 without evidence of pulmonary emboli. Chest x-ray the same day without evidence of cardiomegaly and no acute infiltrate. LABORATORY DATA: White count 8.3, hemoglobin 14, hematocrit 47, platelets 202,000. Sodium 137, potassium 4.8, BUN 10, creatinine 0.9. ABG: pH 7.40, pCO2 66 and pO2 of 86 done on March 30 IMPRESSION: 1. Hypoxic and hypercarbic respiratory failure. 2. Obstructive and/or central sleep apnea, or both. 3. Morbid obesity. 4. Diabetes mellitus. 5. Hypertension. 6. Hypothyroidism. PLAN: 1. The patient will require further evaluation for his hypoxia and hypercarbia which are all likely related to obesity hypoventilation obstructive sleep apnea as well is a possibility and a polysomnographic exam should clarify which is the predominant one and which modality of therapy will be most useful. 2. The patient should be encouraged to lose weight with adequate diet and exercise. 3. We will evaluate the patient further post discharge for polysomnographic exam. I do thank you for asking me to partake in Mr. Mejía's care. Felisa Roberto MD WWW/Amelia /2:49 PM /4:17 PM
[2016-04-02] MEDS: metFORMIN HCL 500 MG TAB PO SCH (17:11)
[2016-04-02] MEDS: ATORVASTATIN 40 MG TAB PO SCH (19:51)
[2016-04-02] MEDS: INSULIN DETEMIR 100 UNITS/ML VIAL SQ SCH (19:52)
[2016-04-03] VITALS (28 sets, daily range): BP systolic 101–119; BP diastolic 45–75; PULSE 65–115; RESP 20–25; TEMP 98.1–98.7; O2SAT 91–98
[2016-04-03] MEDS: INSULIN ASPART SUPPLEMENTAL SCALE SQ SCH ×4 (05:53→21:00)
[2016-04-03] MEDS: LEVOTHYROXINE SODIUM 125 MCG TAB PO SCH (05:53)
[2016-04-03 07:30] LABS: BICARBONATE 40.5 MEQ/L (21.0-32.0); MAGNESIUM 2.2 MG/DL (1.5-2.5); POTASSIUM 4.4 MEQ/L (3.5-5.1)
[2016-04-03] MEDS: RESP: ALBUTEROL 2.5 MG/IPRATROPIUM 0.5 MG NEB (SCH) NEB ×3 (07:49→18:57)
--- NOTE | 2016-04-03 09:40 | HHI.PR ---
Subjective Remarks Follow-up hypoxia. Improving shortness of breath but has not ambulated yet today. He continues to diurese well and lost another 2 kg from yesterday. Unable to do repeat echocardiogram secondary to body habitus. Discussed with RN Objective Vitals Vital Signs Date Time Temp Pulse Resp B/P Pulse Ox O2 Delivery O2 Flow Rate FiO2 04/03/16 07:13 84 04/03/16 06:01 78 04/03/16 05:01 86 04/03/16 04:01 87 04/03/16 03:15 98.1 86 22 112/45 94 04/03/16 03:15 88 04/03/16 02:01 76 04/03/16 01:00 74 04/03/16 00:01 74 04/02/16 23:14 73 04/02/16 23:14 98.6 90 22 141/73 94 04/02/16 22:01 69 04/02/16 21:15 99 Nasal Cannula 4.00 04/02/16 21:01 73 04/02/16 20:01 98.8 76 18 131/76 94 04/02/16 20:01 68 04/02/16 19:00 70 04/02/16 18:04 79 04/02/16 17:00 66 04/02/16 16:02 90 04/02/16 15:32 98.5 77 20 157/85 92 04/02/16 15:03 69 04/02/16 14:00 66 04/02/16 13:05 73 04/02/16 12:24 69 04/02/16 12:23 98.7 62 20 151/60 95 04/02/16 11:00 66 04/02/16 10:02 73 I/O 04/02/16 04/02/16 04/02/16 04/03/16 04/03/16 04/03/16 07:00 15:00 23:00 07:00 15:00 23:00 Intake Total 520 ml 1068 ml 240 ml Output Total 2250 ml 1600 ml 2000 ml Balance -1730 ml -532 ml -1760 ml Intake Oral 520 ml 1060 ml 240 ml IV Total 8 ml Output Urine Total 2250 ml 1600 ml 2000 ml # Voids 4 # Bowel Movements 1 0 Result Diagram: 04/01/16 0541 04/03/16 0649 Objective Remarks GENERAL: Well-developed obese in no distress SKIN: Warm and dry. HEAD: Atraumatic. Normocephalic. EYES: Pupils equal and round. No scleral icterus. No injection or drainage. ENT: No nasal bleeding or discharge. Mucous membranes pink and moist. NECK: Trachea midline. No JVD. CARDIOVASCULAR: Regular rate and rhythm. RESPIRATORY: No accessory muscle use. Clear to auscultation. Decreased Breath sounds equal bilaterally. GASTROINTESTINAL: Abdomen soft, non-tender, nondistended. MUSCULOSKELETAL: Extremities without clubbing, cyanosis with improving bilateral lower extremity pitting edema, he has anasarca. No obvious deformities. NEUROLOGICAL: Awake and alert. No obvious cranial nerve deficits. Motor grossly within normal limits. Five out of 5 muscle strength in the arms and legs. Normal speech. Nonfocal PSYCHIATRIC: Appropriate mood and affect; insight and judgment normal. Procedures Cardiac catheterization A/P Problem List: (1) Morbid obesity ICD Code: E66.01 Status: Acute (2) Dyspnea ICD Code: R06.00 Status: Acute (3) Elevated troponin ICD Code: R74.8 Status: Acute Assessment and Plan This is a 55-year-old male with history of hypertension, diabetes and morbidly obese person with chest pain Chest pain with troponin elevation. Negative cardiac catheterization. CTA negative for PE. Continue aspirin, Lopressor and lisinopril. Diabetes mellitus-hemoglobin A1c 7.6, needs better control of diabetes, continue sliding scale and Levemir. Stable renal function restart metformin Hypothyroidism-TSH 9.2. Increased levothyroxine based on his weight. Hypertension-restart lisinopril, Vasotec as needed Fluid overload etiology to be determined. Renal function within normal limits. Echocardiogram was suboptimal. Fluid restriction. He is improving diuresing well and losing weight. Continue IV diuresis with Lasix and monitor renal function and electrolytes. Probable AMY. Will need sleep study outpatient Morbid obesity. Needs drastic weight loss. Dietitian consult DVT prophylaxis with heparin Discharge Planning Not ready for discharge Raúl Wood MD Apr 03, 2016 09:40
[2016-04-03] MEDS: METOPROLOL TARTRATE 25 MG TAB PO SCH ×2 (09:44→21:29)
[2016-04-03] MEDS: FAMOTIDINE 20 MG TAB PO SCH ×2 (09:44→21:30)
[2016-04-03] MEDS: POTASSIUM CHLORIDE 10 MEQ CAP PO SCH ×2 (09:44→21:30)
[2016-04-03] MEDS: DOCUSATE SODIUM 100 MG CAP PO SCH ×2 (09:44→21:31)
[2016-04-03] MEDS: LISINOPRIL 20 MG TAB PO SCH (09:44)
[2016-04-03] MEDS: metFORMIN HCL 500 MG TAB PO SCH ×2 (09:44→18:27)
[2016-04-03] MEDS: HEPARIN SODIUM - SQ 10,000 UNITS/ML VIAL SQ SCH ×2 (09:45→21:31)
[2016-04-03] MEDS: ASPIRIN EC 325 MG TABEC PO SCH (09:45)
[2016-04-03] MEDS: SODIUM CHLORIDE 0.9% FLUSH 5 ML FLUSH IVF SCH ×2 (09:46→21:31)
--- NOTE | 2016-04-03 13:21 | HHI.PR ---
Subjective Remarks ALERT SITTING IN BED NO SOB Objective Vital Signs Date Time Temp Pulse Resp B/P Pulse Ox O2 Delivery O2 Flow Rate FiO2 04/03/16 13:04 72 04/03/16 12:14 67 04/03/16 11:33 98.1 75 20 109/57 96 04/03/16 11:33 96 Nasal Cannula 2.00 04/03/16 11:19 69 04/03/16 10:39 66 04/03/16 10:04 98 Nasal Cannula 4.00 04/03/16 09:49 98 Nasal Cannula 4.00 04/03/16 09:47 98.7 79 20 114/62 98 04/03/16 09:15 65 04/03/16 07:13 84 04/03/16 06:01 78 04/03/16 05:01 86 04/03/16 04:01 87 04/03/16 03:15 98.1 86 22 112/45 94 04/03/16 03:15 88 04/03/16 02:01 76 04/03/16 01:00 74 04/03/16 00:01 74 04/02/16 23:14 73 04/02/16 23:14 98.6 90 22 141/73 94 04/02/16 22:01 69 04/02/16 21:15 99 Nasal Cannula 4.00 04/02/16 21:01 73 04/02/16 20:01 98.8 76 18 131/76 94 04/02/16 20:01 68 04/02/16 19:00 70 04/02/16 18:04 79 04/02/16 17:00 66 04/02/16 16:02 90 04/02/16 15:32 98.5 77 20 157/85 92 04/02/16 15:03 69 04/02/16 14:00 66 I/O 04/02/16 04/02/16 04/02/16 04/03/16 04/03/16 04/03/16 07:00 15:00 23:00 07:00 15:00 23:00 Intake Total 520 ml 1068 ml 240 ml Output Total 2250 ml 1600 ml 2000 ml Balance -1730 ml -532 ml -1760 ml Intake Oral 520 ml 1060 ml 240 ml IV Total 8 ml Output Urine Total 2250 ml 1600 ml 2000 ml # Voids 4 # Bowel Movements 1 0 Result Diagram: 04/01/16 0541 04/03/16 0649 Objective Remarks GENERAL: SKIN: Warm and dry. HEAD: Atraumatic. Normocephalic. EYES: Pupils equal and round. No scleral icterus. No injection or drainage. ENT: No nasal bleeding or discharge. Mucous membranes pink and moist. NECK: Trachea midline. No JVD. CARDIOVASCULAR: Regular rate and rhythm. RESPIRATORY: No accessory muscle use. Clear to auscultation. Breath sounds equal bilaterally. GASTROINTESTINAL: Abdomen soft, non-tender, nondistended. Hepatic and splenic margins not palpable. MUSCULOSKELETAL: Extremities without clubbing, cyanosis, or edema. No obvious deformities. NEUROLOGICAL: Awake and alert. No obvious cranial nerve deficits. Motor grossly within normal limits. Five out of 5 muscle strength in the arms and legs. Normal speech. PSYCHIATRIC: Appropriate mood and affect; insight and judgment normal. Assessment and Plan Assessment and Plan PROBABLE AMY MORBID [employer]ESITY PLAN NPSG POST D/C Felisa Roberto MD Apr 03, 2016 13:21
[2016-04-03] MEDS: INSULIN DETEMIR 100 UNITS/ML VIAL SQ SCH (21:28)
[2016-04-03] MEDS: ATORVASTATIN 40 MG TAB PO SCH (21:30)
[2016-04-04] VITALS (26 sets, daily range): BP systolic 103–146; BP diastolic 51–74; PULSE 71–103; RESP 18–24; TEMP 97.5–98.8; O2SAT 90–96
[2016-04-04] MEDS ORDERED: OXYGENTANK NAS.CANULA (05:25)
[2016-04-04] MEDS: LEVOTHYROXINE SODIUM 125 MCG TAB PO SCH (06:25)
[2016-04-04] MEDS: INSULIN ASPART SUPPLEMENTAL SCALE SQ SCH ×4 (06:26→20:52)
[2016-04-04 07:56] LABS: BICARBONATE 33.8 MEQ/L (21.0-32.0); MAGNESIUM 2.2 MG/DL (1.5-2.5); POTASSIUM 4.2 MEQ/L (3.5-5.1)
[2016-04-04] MEDS: ASPIRIN EC 325 MG TABEC PO SCH (09:08)
[2016-04-04] MEDS: metFORMIN HCL 500 MG TAB PO SCH ×2 (09:08→18:12)
[2016-04-04] MEDS: FAMOTIDINE 20 MG TAB PO SCH ×2 (09:08→20:51)
[2016-04-04] MEDS: DOCUSATE SODIUM 100 MG CAP PO SCH ×2 (09:08→20:51)
[2016-04-04] MEDS: POTASSIUM CHLORIDE 10 MEQ CAP PO SCH ×2 (09:08→20:51)
[2016-04-04] MEDS: LISINOPRIL 20 MG TAB PO SCH (09:08)
[2016-04-04] MEDS: METOPROLOL TARTRATE 25 MG TAB PO SCH ×2 (09:08→20:51)
[2016-04-04] MEDS: HEPARIN SODIUM - SQ 10,000 UNITS/ML VIAL SQ SCH ×2 (09:10→20:51)
[2016-04-04] MEDS: SODIUM CHLORIDE 0.9% FLUSH 5 ML FLUSH IVF SCH ×2 (09:10→20:51)
--- NOTE | 2016-04-04 10:57 | HHI.PR ---
Subjective Remarks Follow-up fluid overload. Improving dyspnea but still significantly edematous currently on 3 L. Discussed with RN Objective Vitals Vital Signs Date Time Temp Pulse Resp B/P Pulse Ox O2 Delivery O2 Flow Rate FiO2 04/04/16 10:07 78 04/04/16 09:18 88 04/04/16 08:25 97.5 90 18 146/72 94 04/04/16 08:25 103 04/04/16 08:25 94 Nasal Cannula 3.00 04/04/16 07:20 85 04/04/16 06:00 85 04/04/16 05:00 83 04/04/16 04:00 86 04/04/16 03:00 98.8 86 23 116/62 90 04/04/16 03:00 85 04/04/16 02:00 81 04/04/16 01:00 100 04/04/16 00:00 85 04/03/16 23:00 98.2 82 25 101/50 93 04/03/16 23:00 85 04/03/16 22:00 76 04/03/16 21:00 100 04/03/16 20:00 70 04/03/16 19:00 76 04/03/16 19:00 98.1 78 23 118/52 91 04/03/16 19:00 91 Nasal Cannula 1.00 04/03/16 18:57 92 Nasal Cannula 2.00 04/03/16 18:04 85 04/03/16 17:14 96 04/03/16 16:57 92 1.00 04/03/16 16:53 98.6 73 20 119/75 92 04/03/16 16:34 75 04/03/16 15:12 69 04/03/16 14:12 74 04/03/16 13:04 72 04/03/16 12:14 67 04/03/16 11:33 98.1 75 20 109/57 96 04/03/16 11:33 96 Nasal Cannula 2.00 04/03/16 11:19 69 I/O 04/03/16 04/03/16 04/03/16 04/04/16 04/04/16 04/04/16 07:00 15:00 23:00 07:00 15:00 23:00 Intake Total 240 ml 960 ml 560 ml Output Total 2000 ml 2875 ml 1225 ml Balance -1760 ml -1915 ml -665 ml Intake Oral 240 ml 960 ml 560 ml Output Urine Total 2000 ml 2875 ml 1225 ml # Voids 4 # Bowel Movements 0 Result Diagram: 04/01/16 0541 04/04/16 0602 Objective Remarks GENERAL: Well-developed obese in no distress SKIN: Warm and dry. Tinea right inguinal HEAD: Atraumatic. Normocephalic. EYES: Pupils equal and round. No scleral icterus. No injection or drainage. ENT: No nasal bleeding or discharge. Mucous membranes pink and moist. NECK: Trachea midline. No JVD. CARDIOVASCULAR: Regular rate and rhythm. RESPIRATORY: No accessory muscle use. Clear to auscultation. Decreased Breath sounds equal bilaterally. GASTROINTESTINAL: Abdomen soft, non-tender, nondistended. MUSCULOSKELETAL: Extremities without clubbing, cyanosis with improving bilateral lower extremity pitting edema, he has anasarca. No obvious deformities. NEUROLOGICAL: Awake and alert. No obvious cranial nerve deficits. Motor grossly within normal limits. Five out of 5 muscle strength in the arms and legs. Normal speech. Nonfocal PSYCHIATRIC: Appropriate mood and affect; insight and judgment normal. Procedures Cardiac catheterization A/P Problem List: (1) Morbid obesity ICD Code: E66.01 Status: Acute (2) Dyspnea ICD Code: R06.00 Status: Acute (3) Elevated troponin ICD Code: R74.8 Status: Acute Assessment and Plan This is a 55-year-old male with history of hypertension, diabetes and morbidly obese person with chest pain Chest pain with troponin elevation. Negative cardiac catheterization. CTA negative for PE. Continue aspirin, Lopressor and lisinopril. Diabetes mellitus-hemoglobin A1c 7.6, needs better control of diabetes, continue sliding scale and Levemir. Stable renal function restart metformin Hypothyroidism-TSH 9.2. Increased levothyroxine based on his weight. Hypertension-restart lisinopril, Vasotec as needed Fluid overload etiology to be determined. Renal function within normal limits. Echocardiogram was suboptimal. Fluid restriction. He is improving diuresing well and losing weight another 4 kg from yesterday. Continue IV diuresis with Lasix and monitor renal function and electrolytes. Metabolic alkalosis. Improved status post Diamox. Probable AMY. Will need sleep study outpatient Morbid obesity. Needs drastic weight loss. Dietitian consult DVT prophylaxis with heparin Discharge Planning Not ready for discharge, he is improving but still significantly edematous needing IV diuresis. Arrange for home oxygen. Raúl Wood MD Apr 04, 2016 10:57
[2016-04-04] MEDS: FUROSEMIDE 20 MG/2 ML VIAL IV PUSH SCH ×2 (12:02→18:11)
[2016-04-04] MEDS: SODIUM CHLORIDE 0.9% FLUSH 5 ML FLUSH IVF PRN ×2 (12:06→18:11)
[2016-04-04] MEDS: NYSTATIN 100,000 U/GM PWD 15 GM BTL TOPICAL SCH ×2 (16:15→20:53)
--- NOTE | 2016-04-04 17:17 | HHI.PR ---
Subjective Remarks ALERT SITTING IN BED NO SOB Objective Vital Signs Date Time Temp Pulse Resp B/P Pulse Ox O2 Delivery O2 Flow Rate FiO2 04/04/16 16:16 81 04/04/16 16:12 98.4 81 18 111/51 93 04/04/16 15:08 74 04/04/16 14:08 80 04/04/16 13:03 83 04/04/16 12:54 96 Nasal Cannula 2.00 04/04/16 12:47 2.00 04/04/16 12:18 72 04/04/16 11:40 95 Nasal Cannula 3.00 04/04/16 11:40 97.9 73 18 130/65 95 04/04/16 11:00 71 04/04/16 10:07 78 04/04/16 09:18 88 04/04/16 08:25 97.5 90 18 146/72 94 04/04/16 08:25 103 04/04/16 08:25 94 Nasal Cannula 3.00 04/04/16 07:20 85 04/04/16 06:00 85 04/04/16 05:00 83 04/04/16 04:00 86 04/04/16 03:00 98.8 86 23 116/62 90 04/04/16 03:00 85 04/04/16 02:00 81 04/04/16 01:00 100 04/04/16 00:00 85 04/03/16 23:00 98.2 82 25 101/50 93 04/03/16 23:00 85 04/03/16 22:00 76 04/03/16 21:00 100 04/03/16 20:00 70 04/03/16 19:00 76 04/03/16 19:00 98.1 78 23 118/52 91 04/03/16 19:00 91 Nasal Cannula 1.00 04/03/16 18:57 92 Nasal Cannula 2.00 04/03/16 18:04 85 I/O 04/03/16 04/03/16 04/03/16 04/04/16 04/04/16 04/04/16 07:00 15:00 23:00 07:00 15:00 23:00 Intake Total 240 ml 960 ml 560 ml Output Total 2000 ml 2875 ml 1225 ml Balance -1760 ml -1915 ml -665 ml Intake Oral 240 ml 960 ml 560 ml Output Urine Total 2000 ml 2875 ml 1225 ml # Voids 4 # Bowel Movements 0 Result Diagram: 04/01/16 0541 04/04/16 0602 Objective Remarks GENERAL: SKIN: Warm and dry. HEAD: Atraumatic. Normocephalic. EYES: Pupils equal and round. No scleral icterus. No injection or drainage. ENT: No nasal bleeding or discharge. Mucous membranes pink and moist. NECK: Trachea midline. No JVD. CARDIOVASCULAR: Regular rate and rhythm. RESPIRATORY: No accessory muscle use. Clear to auscultation. Breath sounds equal bilaterally. GASTROINTESTINAL: Abdomen soft, non-tender, nondistended. Hepatic and splenic margins not palpable. MUSCULOSKELETAL: Extremities without clubbing, cyanosis, or edema. No obvious deformities. NEUROLOGICAL: Awake and alert. No obvious cranial nerve deficits. Motor grossly within normal limits. Five out of 5 muscle strength in the arms and legs. Normal speech. PSYCHIATRIC: Appropriate mood and affect; insight and judgment normal. Assessment and Plan Assessment and Plan PROBABLE AMY MORBID [employer]ESITY PL[employer] NPSG POST D/C Felisa Roberto MD Apr 04, 2016 17:17
[2016-04-04] MEDS: ATORVASTATIN 40 MG TAB PO SCH (20:51)
[2016-04-04] MEDS: INSULIN DETEMIR 100 UNITS/ML VIAL SQ SCH (20:52)
[2016-04-05] VITALS (25 sets, daily range): BP systolic 103–134; BP diastolic 48–77; PULSE 75–97; RESP 16–22; TEMP 98.2–98.8; O2SAT 90–98
[2016-04-05] MEDS: LEVOTHYROXINE SODIUM 125 MCG TAB PO SCH (06:04)
[2016-04-05] MEDS: NYSTATIN 100,000 U/GM PWD 15 GM BTL TOPICAL SCH ×3 (06:05→21:46)
[2016-04-05 06:50] LABS: POTASSIUM 4.3 MEQ/L (3.5-5.1)
[2016-04-05] MEDS: INSULIN ASPART SUPPLEMENTAL SCALE SQ SCH ×4 (07:00→21:45)
[2016-04-05] MEDS: FUROSEMIDE 20 MG/2 ML VIAL IV PUSH SCH ×2 (09:02→18:18)
[2016-04-05] MEDS: ASPIRIN EC 325 MG TABEC PO SCH (09:02)
[2016-04-05] MEDS: POTASSIUM CHLORIDE 10 MEQ CAP PO SCH ×2 (09:02→21:46)
[2016-04-05] MEDS: FAMOTIDINE 20 MG TAB PO SCH ×2 (09:02→21:43)
[2016-04-05] MEDS: DOCUSATE SODIUM 100 MG CAP PO SCH ×2 (09:02→21:42)
[2016-04-05] MEDS: METOPROLOL TARTRATE 25 MG TAB PO SCH ×2 (09:02→21:44)
[2016-04-05] MEDS: LISINOPRIL 20 MG TAB PO SCH (09:02)
[2016-04-05] MEDS: metFORMIN HCL 500 MG TAB PO SCH ×2 (09:03→18:18)
[2016-04-05] MEDS: HEPARIN SODIUM - SQ 10,000 UNITS/ML VIAL SQ SCH ×2 (09:07→21:00)
[2016-04-05] MEDS: SODIUM CHLORIDE 0.9% FLUSH 5 ML FLUSH IVF SCH ×2 (09:08→21:46)
--- NOTE | 2016-04-05 10:37 | HHI.PR ---
Subjective Remarks Follow-up fluid retention. He is diuresing. He has been ambulating but only in the room. He is tolerating nasal cannula. Discussed with RN and case management. Objective Vitals Vital Signs Date Time Temp Pulse Resp B/P Pulse Ox O2 Delivery O2 Flow Rate FiO2 04/05/16 10:19 79 04/05/16 09:00 86 04/05/16 08:02 98.6 88 16 103/48 92 04/05/16 08:02 92 Nasal Cannula 2.00 04/05/16 08:00 82 04/05/16 07:27 84 04/05/16 06:00 78 04/05/16 05:00 88 04/05/16 04:00 92 04/05/16 03:00 75 04/05/16 03:00 98.6 85 20 106/62 93 04/05/16 02:00 97 04/05/16 01:00 90 04/05/16 00:00 83 04/04/16 23:00 98.4 81 21 103/51 90 04/04/16 23:00 75 04/04/16 22:00 78 04/04/16 21:00 77 04/04/16 20:00 81 04/04/16 19:00 94 04/04/16 19:00 93 Nasal Cannula 2.00 04/04/16 19:00 98.1 78 24 126/74 93 04/04/16 18:16 93 04/04/16 16:16 81 04/04/16 16:12 98.4 81 18 111/51 93 04/04/16 15:08 74 04/04/16 14:08 80 04/04/16 13:03 83 04/04/16 12:54 96 Nasal Cannula 2.00 04/04/16 12:47 2.00 04/04/16 12:18 72 04/04/16 11:40 95 Nasal Cannula 3.00 04/04/16 11:40 97.9 73 18 130/65 95 04/04/16 11:00 71 I/O 04/04/16 04/04/16 04/04/16 04/05/16 04/05/16 04/05/16 07:00 15:00 23:00 07:00 15:00 23:00 Intake Total 560 ml 960 ml 480 ml Output Total 1225 ml 3200 ml 1400 ml Balance -665 ml -2240 ml -920 ml Intake Oral 560 ml 960 ml 480 ml Output Urine Total 1225 ml 3200 ml 1400 ml # Bowel Movements 1 0 Result Diagram: 04/01/16 0541 04/05/16 0557 Objective Remarks GENERAL: Well-developed obese in no distress SKIN: Warm and dry. Tinea right inguinal HEAD: Atraumatic. Normocephalic. EYES: Pupils equal and round. No scleral icterus. No injection or drainage. ENT: No nasal bleeding or discharge. Mucous membranes pink and moist. NECK: Trachea midline. No JVD. CARDIOVASCULAR: Regular rate and rhythm. RESPIRATORY: No accessory muscle use. Clear to auscultation. Decreased Breath sounds equal bilaterally. GASTROINTESTINAL: Abdomen soft, non-tender, nondistended. MUSCULOSKELETAL: Extremities without clubbing, cyanosis with improving bilateral lower extremity pitting edema, he has anasarca. No obvious deformities. NEUROLOGICAL: Awake and alert. No obvious cranial nerve deficits. Motor grossly within normal limits. Five out of 5 muscle strength in the arms and legs. Normal speech. PSYCHIATRIC: Appropriate mood and affect; insight and judgment normal. Procedures Cardiac catheterization A/P Problem List: (1) Morbid obesity ICD Code: E66.01 Status: Acute (2) Dyspnea ICD Code: R06.00 Status: Acute (3) Elevated troponin ICD Code: R74.8 Status: Acute Assessment and Plan This is a 55-year-old male with history of hypertension, diabetes and morbidly obese person with chest pain Chest pain with troponin elevation. Negative cardiac catheterization. CTA negative for PE. Continue aspirin, Lopressor and lisinopril. Diabetes mellitus-hemoglobin A1c 7.6, needs better control of diabetes, continue sliding scale and Levemir. Stable renal function restart metformin Hypothyroidism-TSH 9.2. Increased levothyroxine based on his weight. Hypertension-restart lisinopril, Vasotec as needed Fluid overload etiology to be determined. Renal function within normal limits. Echocardiogram was suboptimal. Fluid restriction. He is improving diuresing well and continuing to lose weight but still with significant edema. Continue IV diuresis with Lasix and monitor renal function and electrolytes. Metabolic alkalosis. Improved status post Diamox. Probable AMY. Will need sleep study outpatient Morbid obesity. Needs drastic weight loss. Dietitian consult Hypoxia secondary to above. Improving. Incentive spirometry, nebulization and EZ Pap. DVT prophylaxis with heparin Discharge Planning Problem discharge in morning if oxygen arranged Raúl Wood MD Apr 05, 2016 10:37
[2016-04-05] MEDS ORDERED: RESP: ALBUTEROL 0.63 MG/3 ML NEB (PRN) NEB (12:00)
[2016-04-05] MEDS: RESP: ALBUTEROL 0.63 MG/3 ML NEB (SCH) NEB ×2 (15:02→22:28)
--- NOTE | 2016-04-05 16:41 | HHI.PR ---
Subjective Remarks ALERT SITTING IN BED NO SOB Objective Vital Signs Date Time Temp Pulse Resp B/P Pulse Ox O2 Delivery O2 Flow Rate FiO2 04/05/16 16:31 82 04/05/16 16:30 98.2 85 18 127/77 92 04/05/16 16:30 92 Nasal Cannula 2.00 04/05/16 15:20 83 04/05/16 15:02 96 Nasal Cannula 2.00 04/05/16 14:00 80 04/05/16 13:00 86 04/05/16 12:29 76 04/05/16 11:57 98.8 75 22 120/62 92 04/05/16 11:15 75 04/05/16 10:19 79 04/05/16 09:00 86 04/05/16 08:02 98.6 88 16 103/48 92 04/05/16 08:02 92 Nasal Cannula 2.00 04/05/16 08:00 82 04/05/16 07:27 84 04/05/16 06:00 78 04/05/16 05:00 88 04/05/16 04:00 92 04/05/16 03:00 75 04/05/16 03:00 98.6 85 20 106/62 93 04/05/16 02:00 97 04/05/16 01:00 90 04/05/16 00:00 83 04/04/16 23:00 98.4 81 21 103/51 90 04/04/16 23:00 75 04/04/16 22:00 78 04/04/16 21:00 77 04/04/16 20:00 81 04/04/16 19:00 94 04/04/16 19:00 93 Nasal Cannula 2.00 04/04/16 19:00 98.1 78 24 126/74 93 04/04/16 18:16 93 I/O 04/04/16 04/04/16 04/04/16 04/05/16 04/05/16 04/05/16 07:00 15:00 23:00 07:00 15:00 23:00 Intake Total 560 ml 960 ml 480 ml Output Total 1225 ml 3200 ml 1400 ml Balance -665 ml -2240 ml -920 ml Intake Oral 560 ml 960 ml 480 ml Output Urine Total 1225 ml 3200 ml 1400 ml # Bowel Movements 1 0 Result Diagram: 04/01/16 0541 04/05/16 0557 Objective Remarks GENERAL: SKIN: Warm and dry. HEAD: Atraumatic. Normocephalic. EYES: Pupils equal and round. No scleral icterus. No injection or drainage. ENT: No nasal bleeding or discharge. Mucous membranes pink and moist. NECK: Trachea midline. No JVD. CARDIOVASCULAR: Regular rate and rhythm. RESPIRATORY: No accessory muscle use. Clear to auscultation. Breath sounds equal bilaterally. GASTROINTESTINAL: Abdomen soft, non-tender, nondistended. Hepatic and splenic margins not palpable. MUSCULOSKELETAL: Extremities without clubbing, cyanosis, or edema. No obvious deformities. NEUROLOGICAL: Awake and alert. No obvious cranial nerve deficits. Motor grossly within normal limits. Five out of 5 muscle strength in the arms and legs. Normal speech. PSYCHIATRIC: Appropriate mood and affect; insight and judgment normal. Assessment and Plan Assessment and Plan PROBABLE AMY MORBID [employer]ESITY PLAN NPSG POST D/C WILL SIGN OFF SEE PRN OFFICE 1 WEEK POST D/C Felisa Roberto MD Apr 05, 2016 16:41
[2016-04-05] MEDS: SODIUM CHLORIDE 0.9% FLUSH 5 ML FLUSH IVF PRN (18:19)
[2016-04-05] MEDS: ATORVASTATIN 40 MG TAB PO SCH (21:42)
[2016-04-05] MEDS: INSULIN DETEMIR 100 UNITS/ML VIAL SQ SCH (21:45)
[2016-04-06] VITALS (8 sets, daily range): BP systolic 102–123; BP diastolic 53–81; PULSE 76–90; RESP 19–22; TEMP 96.8–98.6; O2SAT 91–98
[2016-04-06] MEDS: RESP: ALBUTEROL 0.63 MG/3 ML NEB (SCH) NEB ×3 (03:27→22:06)
[2016-04-06] MEDS: INSULIN ASPART SUPPLEMENTAL SCALE SQ SCH ×4 (05:56→21:00)
[2016-04-06] MEDS: NYSTATIN 100,000 U/GM PWD 15 GM BTL TOPICAL SCH ×3 (06:00→22:01)
[2016-04-06] MEDS: LEVOTHYROXINE SODIUM 125 MCG TAB PO SCH (06:23)
[2016-04-06] MEDS: DOCUSATE SODIUM 100 MG CAP PO SCH ×2 (08:21→21:00)
[2016-04-06] MEDS: LISINOPRIL 20 MG TAB PO SCH (08:21)
[2016-04-06] MEDS: FUROSEMIDE 20 MG/2 ML VIAL IV PUSH SCH (08:21)
[2016-04-06] MEDS: metFORMIN HCL 500 MG TAB PO SCH ×2 (08:21→17:58)
[2016-04-06] MEDS: METOPROLOL TARTRATE 25 MG TAB PO SCH ×2 (08:21→21:58)
[2016-04-06] MEDS: POTASSIUM CHLORIDE 10 MEQ CAP PO SCH ×2 (08:21→21:59)
[2016-04-06] MEDS: ASPIRIN EC 325 MG TABEC PO SCH (08:21)
[2016-04-06] MEDS: HEPARIN SODIUM - SQ 10,000 UNITS/ML VIAL SQ SCH ×2 (08:21→21:59)
[2016-04-06] MEDS: FAMOTIDINE 20 MG TAB PO SCH ×2 (08:21→21:58)
[2016-04-06] MEDS: SODIUM CHLORIDE 0.9% FLUSH 5 ML FLUSH IVF SCH ×2 (08:22→22:00)
--- NOTE | 2016-04-06 09:33 | HHI.PR ---
Subjective Remarks F/U SOB. Improving exercise tolerance but still easily gets SOB. Dw RN and CM Objective Vitals Vital Signs Date Time Temp Pulse Resp B/P Pulse Ox O2 Delivery O2 Flow Rate FiO2 04/06/16 09:07 95 Nasal Cannula 2.00 04/06/16 08:00 98.1 85 20 109/56 91 04/06/16 04:00 98.4 90 22 117/58 92 04/06/16 00:25 98.1 82 22 122/57 91 04/05/16 22:30 Nasal Cannula 2.00 04/05/16 22:29 98 Nasal Cannula 2.00 04/05/16 20:20 98.2 83 18 134/65 90 04/05/16 18:00 80 04/05/16 17:00 86 04/05/16 16:31 82 04/05/16 16:30 98.2 85 18 127/77 92 04/05/16 16:30 92 Nasal Cannula 2.00 04/05/16 15:20 83 04/05/16 15:02 96 Nasal Cannula 2.00 04/05/16 14:00 80 04/05/16 13:00 86 04/05/16 12:29 76 04/05/16 11:57 98.8 75 22 120/62 92 04/05/16 11:15 75 04/05/16 10:19 79 I/O 04/05/16 04/05/16 04/05/16 04/06/16 04/06/16 04/06/16 07:00 15:00 23:00 07:00 15:00 23:00 Intake Total 480 ml 482 ml 482 ml Output Total 1400 ml 3025 ml Balance -920 ml -2543 ml 482 ml Intake Oral 480 ml 480 ml 480 ml IV Total 2 ml 2 ml Output Urine Total 1400 ml 3025 ml # Voids 1 # Bowel Movements 0 1 Result Diagram: 04/05/16 0557 Objective Remarks GENERAL: Well-developed obese in no distress NC SKIN: Warm and dry. Tinea right inguinal HEAD: Atraumatic. Normocephalic. EYES: Pupils equal and round. No scleral icterus. No injection or drainage. ENT: No nasal bleeding or discharge. Mucous membranes pink and moist. NECK: Trachea midline. No JVD. CARDIOVASCULAR: Regular rate and rhythm. RESPIRATORY: No accessory muscle use. Clear to auscultation. Decreased Breath sounds equal bilaterally. GASTROINTESTINAL: Abdomen soft, non-tender, nondistended. MUSCULOSKELETAL: Extremities without clubbing, cyanosis with improving bilateral lower extremity pitting edema, he has anasarca. No obvious deformities. NEUROLOGICAL: Awake and alert. No obvious cranial nerve deficits. Motor grossly within normal limits. Five out of 5 muscle strength in the arms and legs. Normal speech. PSYCHIATRIC: Appropriate mood and affect; insight and judgment normal. Procedures Cardiac catheterization A/P Problem List: (1) Morbid obesity ICD Code: E66.01 Status: Acute (2) Dyspnea ICD Code: R06.00 Status: Acute (3) Elevated troponin ICD Code: R74.8 Status: Acute Assessment and Plan This is a 55-year-old male with history of hypertension, diabetes and morbidly obese person with chest pain Chest pain with troponin elevation. Negative cardiac catheterization. CTA negative for PE. Continue aspirin, Lopressor and lisinopril. Diabetes mellitus-hemoglobin A1c 7.6, needs better control of diabetes, continue sliding scale and Levemir. Stable renal function restart metformin Hypothyroidism-TSH 9.2. Increased levothyroxine based on his weight. Hypertension-restart lisinopril, Vasotec as needed Fluid overload. Renal function within normal limits. Echocardiogram was suboptimal likely HF. Fluid restriction. He is improving diuresing well but did not lose weight from yesterday and still with significant edema and MANE. Continue IV diuresis with Lasix and monitor renal function and electrolytes. Increase lasix Metabolic alkalosis. Improved status post Diamox. Probable AMY. Will need sleep study outpatient Morbid obesity. Needs drastic weight loss. Dietitian consult Hypoxia secondary to above. Improving. Incentive spirometry, nebulization and EZ Pap. DVT prophylaxis with heparin Discharge Planning Dc when oxygen arranged Abando,Raúl Rubio MD Apr 06, 2016 09:33
[2016-04-06] MEDS: FUROSEMIDE 40 MG/4 ML VIAL IV PUSH SCH (17:59)
[2016-04-06] MEDS: ATORVASTATIN 40 MG TAB PO SCH (21:58)
[2016-04-06] MEDS: INSULIN DETEMIR 100 UNITS/ML VIAL SQ SCH (21:59)
[2016-04-07] VITALS (8 sets, daily range): BP systolic 115–130; BP diastolic 56–76; PULSE 78–97; RESP 18–20; TEMP 97.9–98.8; O2SAT 90–97
[2016-04-07] MEDS: RESP: ALBUTEROL 0.63 MG/3 ML NEB (SCH) NEB ×4 (03:43→21:32)
[2016-04-07] MEDS: NYSTATIN 100,000 U/GM PWD 15 GM BTL TOPICAL SCH ×3 (05:31→21:07)
[2016-04-07] MEDS: LEVOTHYROXINE SODIUM 125 MCG TAB PO SCH (05:31)
[2016-04-07] MEDS: INSULIN ASPART SUPPLEMENTAL SCALE SQ SCH ×4 (05:31→21:00)
--- NOTE | 2016-04-07 07:54 | HHI.PR ---
Subjective Remarks Follow-up hypoxia. States he is not able to afford home oxygen. Inquiring about rehabilitation and Medicaid. Told him that he's hi functioning I doubt if he qualifies but will inquire. PT evaluation. Discussed with RN Objective Vitals Vital Signs Date Time Temp Pulse Resp B/P Pulse Ox O2 Delivery O2 Flow Rate FiO2 04/07/16 07:30 Nasal Cannula 2.00 04/07/16 04:00 97.9 97 18 120/57 96 04/07/16 00:00 Nasal Cannula 2.00 04/07/16 00:00 98.7 83 20 118/73 95 04/06/16 20:25 Nasal Cannula 2.00 04/06/16 20:25 96.8 83 19 123/81 98 04/06/16 20:00 96.8 83 19 123/81 98 04/06/16 20:00 96.8 83 19 116/81 96 04/06/16 20:00 87 04/06/16 16:00 98.2 76 20 119/57 91 04/06/16 12:00 98.6 77 20 102/53 96 04/06/16 11:30 2.00 04/06/16 09:07 95 Nasal Cannula 2.00 04/06/16 08:30 Nasal Cannula 2.00 04/06/16 08:00 98.1 85 20 109/56 91 04/06/16 08:00 79 I/O 04/06/16 04/06/16 04/06/16 04/07/16 04/07/16 04/07/16 07:00 15:00 23:00 07:00 15:00 23:00 Intake Total 482 ml 734 ml Balance 482 ml 734 ml Intake Oral 480 ml 720 ml IV Total 2 ml 14 ml # Voids 1 3 # Bowel Movements 1 2 Result Diagram: 04/05/16 0557 Objective Remarks GENERAL: Well-developed obese in no distress NC SKIN: Warm and dry. Tinea right inguinal HEAD: Atraumatic. Normocephalic. EYES: Pupils equal and round. No scleral icterus. No injection or drainage. ENT: No nasal bleeding or discharge. Mucous membranes pink and moist. NECK: Trachea midline. No JVD. CARDIOVASCULAR: Regular rate and rhythm. RESPIRATORY: No accessory muscle use. Clear to auscultation. Decreased Breath sounds equal bilaterally. GASTROINTESTINAL: Abdomen soft, non-tender, nondistended. MUSCULOSKELETAL: Extremities without clubbing, cyanosis with improving bilateral lower extremity pitting edema, he has anasarca. No obvious deformities. NEUROLOGICAL: Awake and alert. No obvious cranial nerve deficits. Motor grossly within normal limits. Five out of 5 muscle strength in the arms and legs. Normal speech. Nonfocal PSYCHIATRIC: Appropriate mood and affect; insight and judgment normal. Procedures Cardiac catheterization A/P Problem List: (1) Morbid obesity ICD Code: E66.01 Status: Acute (2) Dyspnea ICD Code: R06.00 Status: Acute (3) Elevated troponin ICD Code: R74.8 Status: Acute Assessment and Plan This is a 55-year-old male with history of hypertension, diabetes and morbidly obese person with chest pain Chest pain with troponin elevation. Negative cardiac catheterization. CTA negative for PE. Continue aspirin, Lopressor and lisinopril. Diabetes mellitus-hemoglobin A1c 7.6, needs better control of diabetes, continue sliding scale and Levemir. Stable renal function restart metformin. Stable fingersticks Hypothyroidism-TSH 9.2. Increased levothyroxine based on his weight. Hypertension-restart lisinopril, Vasotec as needed Fluid overload. Renal function within normal limits. Echocardiogram was suboptimal likely HF. Fluid restriction. He is improving diuresing well but did not lose weight from yesterday and still with significant edema and MANE. Continue IV diuresis with Lasix and monitor renal function and electrolytes. Repeat BMP and magnesium in the morning. Discussed with RN, strict I and O Metabolic alkalosis. Improved status post Diamox. Probable AMY. Will need sleep study outpatient Morbid obesity. Needs drastic weight loss. Dietitian consult Hypoxia secondary to above. Improving. Incentive spirometry, nebulization and EZ Pap. Wean oxygen to keep saturation over 92% Inquiring about rehabilitation and Medicaid. Told him that he's hi functioning I doubt if he qualifies but will inquire. PT evaluation. Case management consult DVT prophylaxis with heparin Discharge Planning Dc when oxygen arranged Abando,Raúl Rubio MD Apr 07, 2016 07:54
[2016-04-07] MEDS: ASPIRIN EC 325 MG TABEC PO SCH (08:10)
[2016-04-07] MEDS: METOPROLOL TARTRATE 25 MG TAB PO SCH ×2 (08:11→21:06)
[2016-04-07] MEDS: LISINOPRIL 20 MG TAB PO SCH (08:11)
[2016-04-07] MEDS: metFORMIN HCL 500 MG TAB PO SCH ×2 (08:11→17:51)
[2016-04-07] MEDS: FAMOTIDINE 20 MG TAB PO SCH (08:12)
[2016-04-07] MEDS: POTASSIUM CHLORIDE 10 MEQ CAP PO SCH ×2 (08:12→21:06)
[2016-04-07] MEDS: FUROSEMIDE 40 MG/4 ML VIAL IV PUSH SCH ×2 (08:12→17:51)
[2016-04-07] MEDS: SODIUM CHLORIDE 0.9% FLUSH 5 ML FLUSH IVF SCH ×2 (08:13→20:49)
[2016-04-07] MEDS: HEPARIN SODIUM - SQ 10,000 UNITS/ML VIAL SQ SCH ×2 (08:13→21:06)
[2016-04-07] MEDS ORDERED: LEVO.125 PO (08:56)
[2016-04-07] MEDS ORDERED: NYST10007 TOPICAL (08:56)
[2016-04-07] MEDS ORDERED: POTA10CA PO (08:56)
[2016-04-07] MEDS ORDERED: FURO1TAB60 PO (08:56)
[2016-04-07] MEDS ORDERED: METO25TA3 PO (08:56)
--- NOTE | 2016-04-07 08:56 | HHI.DCPOC ---
Discharge Care Plan Diagnosis: (1) Elevated troponin (2) Morbid obesity (3) Dyspnea Your Health Problems Are: Difficulty with ADL Exercise Tolerance Goals to Promote Your Health * To prevent worsening of your condition and complications * To maintain your health at the optimal level Directions to Meet Your Goals Take your medications as prescribed Follow your dietary instruction Follow activity as directed Keep your appointments as scheduled Take your immunizations and boosters as scheduled If your symptoms worsen call your PCP, if no PCP go to Urgent Care Center or Emergency Room Smoking is Dangerous to Your Health. Avoid second hand smoke Call the 24-hour hour crisis hotline for domestic abuse at Raúl Wood MD Apr 07, 2016 08:56
[2016-04-07] MEDS: DOCUSATE SODIUM 100 MG CAP PO SCH ×2 (09:00→21:00)
[2016-04-07 09:04] LABS: BICARBONATE 36.5 MEQ/L (21.0-32.0); POTASSIUM 4.3 MEQ/L (3.5-5.1)
[2016-04-07] MEDS: INSULIN DETEMIR 100 UNITS/ML VIAL SQ SCH (21:06)
[2016-04-08] VITALS (7 sets, daily range): BP systolic 104–139; BP diastolic 52–83; PULSE 77–95; RESP 19–20; TEMP 97.3–98.4; O2SAT 90–96
[2016-04-08] MEDS: RESP: ALBUTEROL 0.63 MG/3 ML NEB (SCH) NEB ×3 (04:25→16:53)
[2016-04-08] MEDS: NYSTATIN 100,000 U/GM PWD 15 GM BTL TOPICAL SCH ×2 (05:51→13:12)
[2016-04-08] MEDS: INSULIN ASPART SUPPLEMENTAL SCALE SQ SCH ×3 (05:51→15:52)
[2016-04-08] MEDS: LEVOTHYROXINE SODIUM 125 MCG TAB PO SCH (05:51)
[2016-04-08 08:04] LABS: BICARBONATE 34.4 MEQ/L (21.0-32.0); MAGNESIUM 1.7 MG/DL (1.5-2.5)
[2016-04-08] MEDS: SODIUM CHLORIDE 0.9% FLUSH 5 ML FLUSH IVF SCH (08:57)
[2016-04-08] MEDS: LISINOPRIL 20 MG TAB PO SCH (08:58)
[2016-04-08] MEDS: POTASSIUM CHLORIDE 10 MEQ CAP PO SCH (08:58)
[2016-04-08] MEDS: metFORMIN HCL 500 MG TAB PO SCH ×2 (08:58→18:36)
[2016-04-08] MEDS: METOPROLOL TARTRATE 25 MG TAB PO SCH (08:58)
[2016-04-08] MEDS: HEPARIN SODIUM - SQ 10,000 UNITS/ML VIAL SQ SCH (08:59)
[2016-04-08] MEDS: FUROSEMIDE 40 MG/4 ML VIAL IV PUSH SCH ×2 (08:59→18:00)
[2016-04-08] MEDS ORDERED: ASPIRIN EC 81 MG TABEC PO SCH (09:00)
[2016-04-08] MEDS: DOCUSATE SODIUM 100 MG CAP PO SCH (09:00)
--- NOTE | 2016-04-08 09:57 | HHI.PR ---
Subjective Remarks F/U hypoxia. Tolerating NC 2L ambulating hallway. States mentally and physically Im ready to go home but need to arrange for oxygen dw RN Objective Vitals Vital Signs Date Time Temp Pulse Resp B/P Pulse Ox O2 Delivery O2 Flow Rate FiO2 04/08/16 09:50 94 Nasal Cannula 2.00 04/08/16 04:29 93 Nasal Cannula 2.00 04/08/16 04:00 97.5 78 19 104/52 96 04/08/16 00:00 98.1 95 19 123/64 95 04/07/16 21:00 Nasal Cannula 1.00 04/07/16 20:00 98.1 84 19 130/67 93 04/07/16 18:00 20 93 04/07/16 16:00 97.9 84 18 127/76 90 04/07/16 12:00 98.0 80 20 115/56 96 04/07/16 11:26 94 Nasal Cannula 2.00 I/O 04/07/16 04/07/16 04/07/16 04/08/16 04/08/16 04/08/16 07:00 15:00 23:00 07:00 15:00 23:00 Intake Total 480 ml 480 ml 240 ml Output Total 2400 ml 1450 ml 1600 ml Balance -1920 ml -970 ml -1360 ml Intake Oral 480 ml 480 ml 240 ml Output Urine Total 2400 ml 1450 ml 1600 ml # Bowel Movements 0 1 0 Result Diagram: 04/08/16 [address] Angiography 03/30/16 1213 Signed Impressions: Service Date/Time: Wednesday, March 30, 2016 12:57 - CONCLUSION: 1. The study is degraded by the patient's large body habitus. 2. There is no evidence of pulmonary embolism. Michel Daigle MD Chest X-Ray 03/30/16 1054 Signed Impressions: Service Date/Time: Wednesday, March 30, 2016 11:02 - CONCLUSION: Cardiomegaly with no acute cardiopulmonary disease. Michel Daigle MD Lower Extremity Ultrasound 03/30/16 0000 Signed Impressions: Service Date/Time: Wednesday, March 30, 2016 12:20 - CONCLUSION: Negative exam with no evidence of deep venous thrombosis. Michel Daigle MD Objective Remarks GENERAL: Well-developed obese in no distress NC SKIN: Warm and dry. Tinea right inguinal HEAD: Atraumatic. Normocephalic. EYES: Pupils equal and round. No scleral icterus. No injection or drainage. ENT: No nasal bleeding or discharge. Mucous membranes pink and moist. NECK: Trachea midline. No JVD. CARDIOVASCULAR: Regular rate and rhythm. RESPIRATORY: No accessory muscle use. Clear to auscultation. Decreased Breath sounds equal bilaterally. GASTROINTESTINAL: Abdomen soft, non-tender, nondistended. MUSCULOSKELETAL: Extremities without clubbing, cyanosis with improving bilateral lower extremity pitting edema, he has anasarca. No obvious deformities. NEUROLOGICAL: Awake and alert. No obvious cranial nerve deficits. Motor grossly within normal limits. Five out of 5 muscle strength in the arms and legs. Normal speech. Nonfocal PSYCHIATRIC: Appropriate mood and affect; insight and judgment normal. Procedures Cardiac catheterization A/P Problem List: (1) Morbid obesity ICD Code: E66.01 Status: Acute (2) Dyspnea ICD Code: R06.00 Status: Acute (3) Elevated troponin ICD Code: R74.8 Status: Acute Assessment and Plan This is a 55-year-old male with history of hypertension, diabetes and morbidly obese person with chest pain Chest pain with troponin elevation. Negative cardiac catheterization. CTA negative for PE. Continue aspirin, Lopressor and lisinopril. Diabetes mellitus-hemoglobin A1c 7.6, needs better control of diabetes, continue sliding scale and Levemir. Stable renal function restart metformin. Stable fingersticks Hypothyroidism-TSH 9.2. Increased levothyroxine based on his weight. Hypertension-restart lisinopril, Vasotec as needed Fluid overload. Renal function within normal limits. Echocardiogram was suboptimal likely HF. Fluid restriction. He is improving diuresing well and continues to lose weight total of 16 pounds since admission. Improved. Continue IV diuresis while in-house with Lasix and monitor renal function and electrolytes. Repeat BMP and magnesium in the morning. Discussed with RN, bernadine I and O Metabolic alkalosis. Improved status post Diamox. Probable AMY. Will need sleep study outpatient Morbid obesity. Needs drastic weight loss. Dietitian consult Hypoxia secondary to above. Improving. Incentive spirometry, nebulization and EZ Pap. Wean oxygen to keep saturation over 92% DVT prophylaxis with heparin Discharge Planning Dc when oxygen arranged Abando,Raúl Rubio MD Apr 08, 2016 09:57 Raúl Wood MD Apr 08, 2016 09:57
--- NOTE | 2016-04-08 13:27 | HHI.DS ---
Discharge Summary Admission Date Mar 30, 2016 at 14:01 Discharge Date: Apr 08, 2016 Admitting Diagnosis NSTEMI (1) Morbid obesity ICD Code: E66.01 Diagnosis: Principal (2) Dyspnea ICD Code: R06.00 Diagnosis: Principal (3) Elevated troponin ICD Code: R74.8 Diagnosis: Principal Procedures Cardiac catheterization Brief History - From Admission Late entry: This is a 55-year-old male with history of hypertension, diabetes mellitus and morbid obesity presenting with chest pain. Chest pain started around 7 AM this morning upon waking up, left-sided, described as pressure-like, radiating to left arm associated with shortness of breath and diaphoresis. Chest pain lasted for about a few seconds. Patient was then brought to the emergency department. CTA of the chest was negative for PE. Troponin was. Patient denies any nausea, vomiting, urinary status, fever, chills or cough. Presently , patient is chest pain-free. CBC/BMP: 04/08/16 0720 Significant Findings Laboratory Tests Test 04/07/16 04/08/16 07:22 07:20 Sodium Level 134 MEQ/L 135 MEQ/L (136-145) (136-145) Chloride Level 93 MEQ/L 95 MEQ/L (98-107) (98-107) Carbon Dioxide Level 36.5 MEQ/L 34.4 MEQ/L (21.0-32.0) (21.0-32.0) Estimat Glomerular Filtration 82 ML/MIN (>89) 79 ML/MIN (>89) Rate Random Glucose 121 MG/DL 109 MG/DL (74-106) (74-106) Imaging Last Impressions CT Angiography 03/30/16 1213 Signed Impressions: Service Date/Time: Wednesday, March 30, 2016 12:57 - CONCLUSION: 1. The study is degraded by the patient's large body habitus. 2. There is no evidence of pulmonary embolism. Michel Daigle MD Chest X-Ray 03/30/16 1054 Signed Impressions: Service Date/Time: Wednesday, March 30, 2016 11:02 - CONCLUSION: Cardiomegaly with no acute cardiopulmonary disease. Michel Daigle MD Lower Extremity Ultrasound 03/30/16 0000 Signed Impressions: Service Date/Time: Wednesday, March 30, 2016 12:20 - CONCLUSION: Negative exam with no evidence of deep venous thrombosis. Michel Daigle MD PE at Discharge GENERAL: Well-developed obese in no distress NC SKIN: Warm and dry. Tinea right inguinal HEAD: Atraumatic. Normocephalic. EYES: Pupils equal and round. No scleral icterus. No injection or drainage. ENT: No nasal bleeding or discharge. Mucous membranes pink and moist. NECK: Trachea midline. No JVD. CARDIOVASCULAR: Regular rate and rhythm. RESPIRATORY: No accessory muscle use. Clear to auscultation. Decreased Breath sounds equal bilaterally. GASTROINTESTINAL: Abdomen soft, non-tender, nondistended. MUSCULOSKELETAL: Extremities without clubbing, cyanosis with improving bilateral lower extremity pitting edema, he has anasarca. No obvious deformities. NEUROLOGICAL: Awake and alert. No obvious cranial nerve deficits. Motor grossly within normal limits. Five out of 5 muscle strength in the arms and legs. Normal speech. Nonfocal PSYCHIATRIC: Appropriate mood and affect; insight and judgment normal. Hospital Course This is a 55-year-old male with history of hypertension, diabetes and morbidly obese person with chest pain Chest pain with troponin elevation. Negative cardiac catheterization. CTA negative for PE. Continue aspirin, Lopressor and lisinopril. Diabetes mellitus-hemoglobin A1c 7.6, needs better control of diabetes, continue sliding scale and Levemir. Stable renal function restart metformin. Stable fingersticks Hypothyroidism-TSH 9.2. Increased levothyroxine based on his weight. Hypertension-restart lisinopril, Vasotec as needed Fluid overload. Renal function within normal limits. Echocardiogram was suboptimal likely HF. Fluid restriction. He is improving diuresing well and continues to lose weight total of 16 pounds since admission. Improved. Continue IV diuresis while in-house with Lasix and monitor renal function and electrolytes. Repeat BMP and magnesium in the morning. Discussed with RNbernadine I and O Metabolic alkalosis. Improved status post Diamox. Probable AMY. Will need sleep study outpatient Morbid obesity. Needs drastic weight loss. Dietitian consult Hypoxia secondary to above. Improving. Incentive spirometry, nebulization and EZ Pap. Wean oxygen to keep saturation over 92% DVT prophylaxis with heparin Pt Condition on Discharge: Stable Discharge Disposition: Discharge Home Discharge Time: <= 30 minutes Discharge Instructions DIET: Follow Instructions for: Heart Healthy Diet, Diabetic Diet Activities you can perform: Regular-No Restrictions, Weight Bearing as Inderjit Activities to Avoid: Driving Follow up Referrals: PCP Follow-up - 1 Week Pulmonology - 1 Week New Orders: BASIC METABOLIC PROF - 1 Week TSH 3RD GEN - 6 Weeks New Medications: Furosemide (Lasix) 40 Mg Tab 40 MG PO DAILY Prevent Heart Failure #30 Ref 0 TAB Oxygen tank (Oxygen tank) 1 Ea Tank 2 LITER ANGÉLICA.CANULA CONTINUOUS Oxygen Concentrator Portable Gaseous 2 L/min via Nasal Cannula Continuous For 99 months HYPOXEMIA PREVENTION #1 CYLINDER Levothyroxine (Synthroid) 125 Mcg Tab 125 MCG PO DAILY@06 Thyroid Supplement #30 TAB Metoprolol Tartrate (Metoprolol Tartrate) 25 Mg Tab 12.5 MG PO BID Blood Pressure Management #60 TAB Nystatin Topical (Nystop Topical) 100,000 Unit/Gm Powd 1 APPLIC TOPICAL Q8HR fungal infection Days 14 GM Potassium Chloride ER (Potassium Chloride ER) 10 Meq Cap 10 MEQ PO DAILY Electrolyte Replacement #30 CAP Continued Medications: Aspirin (Aspirin Low Dose) 81 Mg Chew 81 MG CHEW DAILY Ref 0 TAB Insulin Human Isophane-Regular 70-30 Inj (Novolin 70-30 Inj) 1,000 Unit/10 Ml Vial 50 UNITS SQ DAILY Blood Sugar Management Ref 0 ML Lisinopril (Lisinopril) 20 Mg Tab 20 MG PO DAILY #30 Ref 0 TAB Metformin (Metformin) 1,000 Mg Tab 1000 MG PO BIDPC With meals Blood Sugar Management #60 Ref 0 TAB Raúl Wood MD Apr 08, 2016 13:27
== END 2016-04-08 19:00 | disposition home or self-care (01) | DRG 286 ==
LOC: PHED 10:41 → PHEDA 14:01 → HCIN 20:57 → N04B 04-05 20:13
PROVIDERS: ADMIT Internal Medicine; ATTEND Internal Medicine
PROC: B2111ZZ Fluoroscopy of Multiple Coronary Arteries using Low Osmolar Contrast (ICD-10-PCS; 2016-03-31)
PROC: 4A023N7 Measurement of Cardiac Sampling and Pressure, Left Heart, Percutaneous Approach (ICD-10-PCS; principal; 2016-03-31 12:30)
DX: R07.9 Chest pain, unspecified (principal); J96.92 Respiratory failure, unspecified with hypercapnia; J96.91 Respiratory failure, unspecified with hypoxia; Z68.43 Body mass index [BMI] 50.0-59.9, adult; E66.2 Morbid (severe) obesity with alveolar hypoventilation; E87.3 Alkalosis; I11.0 Hypertensive heart disease with heart failure; I50.9 Heart failure, unspecified; E11.9 Type 2 diabetes mellitus without complications; E03.9 Hypothyroidism, unspecified; I25.119 Atherosclerotic heart disease of native coronary artery with unspecified angina pectoris; R74.8 Abnormal levels of other serum enzymes; F32.9 Major depressive disorder, single episode, unspecified; Z23 Encounter for immunization; Z79.4 Long term (current) use of insulin; Z82.49 Family history of ischemic heart disease and other diseases of the circulatory system; Z88.0 Allergy status to penicillin
CPT/HCPCS: 36600; 71010; 71275; 76937; 80048; 80053; 80061; 82550; 82552; 82805; 82948; 83036; 83690; 83735; 83880; 84439; 84443; 84481; 84484; 85025; 85610; 85730; 90686; 90732; 93005; 93306; 93454; 93970; 94150; 94620; 94640; 94664; 96374; C1769; C1893; J1120; J1644; J1815; J1940; J2250; J3010; J7613; Q2038; Q9967